=== PATIENT | male | born 1970 | race Caucasian/White ===

== ENCOUNTER → 2024-03-10 | Outpatient (CLI) | payer MEDICARE, MEDICAID, SELFPAY ==
[2024-03-10 08:43] LABS: Basophils # (Auto) 0.1 Thou/mm3 (0.0-0.2); Basophils % (Auto) 1 % (0-2.5); Eosinophils # (Auto) 0.1 Thou/mm3 (0.0-0.5); Eosinophils % (Auto) 2 % (0-10); Hematocrit 43.2 % (41.0-53.0); Immature Granulocytes % (Auto) 0 % (0-0); Immature Granulocytes Auto 0.01 Thou/mm3 (0.00-0.00); Lymphocytes # (Auto) 1.4 Thou/mm3 (1.0-4.8); Lymphocytes % (Auto) 23 % (10-50); Mean Corpuscular HGB Conc 32.4 g/dl (31.0-37.0); Mean Corpuscular Hemoglobin 26.4 pg (25.0-35.0); Mean Corpuscular Volume 82 fL (80-100); Monocytes # (Auto) 0.6 Thou/mm3 (0.0-0.8); Monocytes % (Auto) 10 % (0-12); Neutrophils % (Auto) 64 % (37-80); Nucleated Red Blood Cell % 0 /100 WBC (0); Platelet Count 282 Thou/mm3 (140-440); RDW Standard Deviation 41.5 fL (35.1-43.9); White Blood Count 6.2 Thou/mm3 (3.8-10.6)
[2024-03-10 09:09] LABS: Vitamin D 25 Hydroxy Total 25.4 ng/mL (7.3-40.2)
[2024-03-10 09:21] LABS: Alanine Aminotransferase 27 U/L (10-49); Albumin, Serum 4.6 gm/dL (3.5-5.0); Alkaline Phosphatase 107 U/L (46-116); Anion Gap 8 (7-16); BUN/Creatinine Ratio 15 Ratio (12-20); Bilirubin,Total 0.5 mg/dL (0.3-1.2); Blood Urea Nitrogen 15 mg/dL (9-23); Carbon Dioxide 24.9 mMol/L (20.0-31.0); Cardiac Risk Estimate 5.1 RATIO (4.0-6.7); Chloride 100 mMol/L (98-107); Cholesterol 226 mg/dL (132-200); Free T4 (Free Thyroxine) 1.09 ng/dL (0.89-1.76); Globulin 2.3 gm/dL (2.3-3.5); Glucose 273 mg/dL (74-106); HDL Cholesterol 44 mg/dL (40-60); LDL Cholesterol,Calculated 145 mg/dL (0-130); Osmolality,Calculated 277 (275-295); Potassium 4.1 mMol/L (3.4-5.1); Sodium 133 mMol/L (136-145); Thyroid Stimulating Hormone 2.61 uIU/mL (0.55-4.78); Total Protein 6.9 gm/dL (5.7-8.2); Triglycerides 184 mg/dL (30-150); eGFR > 60 See Note
[2024-03-10 09:28] LABS: Iron 48 mcg/dL (65-175)
[2024-03-10 09:32] LABS: Aspartate Amino Transferase 16 U/L (0-34)
== END | disposition home or self-care (01) ==
PROVIDERS: PCP Internal Medicine; Referring Provider Internal Medicine; Visit Provider Internal Medicine
DX: I11.0 Hypertensive heart disease with heart failure (principal); E11.9 Type 2 diabetes mellitus without complications; N40.1 Benign prostatic hyperplasia with lower urinary tract symptoms; E55.9 Vitamin D deficiency, unspecified; E78.2 Mixed hyperlipidemia; E03.9 Hypothyroidism, unspecified
CPT/HCPCS: 36415; 80053; 80061; 82306; 83540; 84153; 84439; 84443; 85025

== ENCOUNTER 2024-05-11 09:03 | Emergency (ER) | payer OTHER, MEDICAID, SELFPAY ==
[2024-05-11 09:04] VITALS: PULSE 66; RESP 20; O2SAT 97
--- NOTE | 2024-05-11 09:06 | EKG_ITS ---
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
[2024-05-11 09:19] VITALS: BP 129/83; PULSE 67; RESP 16; TEMP 37.2; O2SAT 96; BMI 26.1
--- NOTE | 2024-05-11 09:29 | XR_ITS ---
Examination: CT brain head without contrast. 2-D sagittal coronal reconstructions Date and time of exam:May 11, 2024 0938 hrs. Indications: Severe headaches today CTDI: vol (mGy):51.8 DLP: (mGycm):1064 Technique: Multiple CT axial sections of the brain have been obtained, 5 mm slice thickness. Contrast has not been administered. 2-D sagittal, coronal reconstructions have been obtained Low dose protocols were performed. One or more of the following dose reduction techniques were used; automated exposure control, adjustment of the mA and/or KV according to patient size, use of iterative reconstruction technique. Findings: No significant ventricular enlargement. Intra-axial or extra-axial hemorrhage density is not seen. No mass effect or midline shift Basal cisterns are not remarkable. Fourth ventricle is midline. Cranial vault intact. 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
--- NOTE | 2024-05-11 09:29 | XR_ITS ---
Examination: PA lateral chest 2 views Technique: Upright PA lateral chest 2 views Exam date and time: May 11, 2024 at 10:00 AM Comparison December 19, 2023 Indications: Chest pain shortness of breath today Findings: Normal heart size Lungs are clear. Old left-sided rib fractures Impression: No active disease
[2024-05-11 09:58] LABS: Collection Type, Urine Clean Catch; Squamous Epithelial Cell,Urine 0 /hpf (0-5); WBC,Urine 0 /hpf (0-5)
[2024-05-11 10:03] LABS: Basophils # (Auto) 0.1 Thou/mm3 (0.0-0.2); Basophils % (Auto) 1 % (0-2.5); Eosinophils # (Auto) 0.1 Thou/mm3 (0.0-0.5); Eosinophils % (Auto) 2 % (0-10); Hemoglobin 13.8 g/dL (13.5-16.0); Immature Granulocytes % (Auto) 0 % (0-0); Immature Granulocytes Auto 0.02 Thou/mm3 (0.00-0.00); Lymphocytes # (Auto) 1.3 Thou/mm3 (1.0-4.8); Lymphocytes % (Auto) 19 % (10-50); Mean Corpuscular HGB Conc 32.9 g/dl (31.0-37.0); Mean Corpuscular Hemoglobin 27.7 pg (25.0-35.0); Mean Corpuscular Volume 84 fL (80-100); Monocytes # (Auto) 0.6 Thou/mm3 (0.0-0.8); Monocytes % (Auto) 10 % (0-12); Neutrophils # (Auto) 4.5 Thou/mm3 (1.8-7.7); Neutrophils % (Auto) 68 % (37-80); Nucleated Red Blood Cell % 0 /100 WBC (0); Platelet Count 247 Thou/mm3 (140-440); RDW Standard Deviation 45.1 fL (35.1-43.9); Red Blood Count 4.99 Miln/mm3 (4.50-5.90); White Blood Count 6.6 Thou/mm3 (3.8-10.6)
[2024-05-11 10:15] LABS: Bilirubin,Urine Negative (Negative); Blood,Urine Negative (Negative); Clarity,Urine Clear (Clear/Hazy); Color,Urine Colorless (Lt Yel-Yel); Glucose, Urine Negative (Negative); Ketones,Urine Negative (Negative); Leukocyte Esterase,Urine Negative (Negative); Nitrite,Urine Negative (Negative); Protein,Urine Negative (Neg - Trace); RBC,Urine < 1 /hpf (0-3); Specific Gravity,Urine 1.006 (1.001-1.035); Urobilinogen,Urine Negative mg/dL (0.0-1.0)
[2024-05-11 10:27] LABS: Partial Thromboplastin Time 26.5 Seconds (22.0-36.0); Prothrombin Time 11.4 Seconds (9.0-12.2)
[2024-05-11 10:28] LABS: Amphetamine/Methamp Scrn,U Negative (Negative); Barbiturate Screen,Urine Negative (Negative); Benzodiazepines Screen,Urine Negative (Negative); Benzoylecgonine Screen, Ur Negative (Negative); Fentanyl Screen,Urine Negative (Negative); Opiate Screen,Urine Negative (Negative); THC Screen,Urine Negative (Negative)
[2024-05-11 10:30] LABS: Troponin I < 0.002 ng/mL (0.0-0.045)
[2024-05-11 10:32] LABS: Alanine Aminotransferase 18 U/L (10-49); Albumin, Serum 4.5 gm/dL (3.5-5.0); Albumin/Globulin Ratio 1.7 (1.2-2.2); Alkaline Phosphatase 86 U/L (46-116); Anion Gap 10 (7-16); Aspartate Amino Transferase 21 U/L (0-34); B-Type Natriuretic Peptide < 20 pg/mL (0-100); BUN/Creatinine Ratio 16 Ratio (12-20); Bilirubin,Total 0.9 mg/dL (0.3-1.2); Blood Urea Nitrogen 14 mg/dL (9-23); Calcium 9.1 mg/dL (8.3-10.6); Calcium (Corrected) 9.1 mg/dL (8.5-10.1); Chloride 99 mMol/L (98-107); Creatinine (Component) 0.9 mg/dL (0.6-1.3); Estimated Creatinine Clearance 107.3 mL/min (>60); Globulin 2.6 gm/dL (2.3-3.5); Glucose 129 mg/dL (74-106); Magnesium 1.7 mg/dL (1.6-2.6); Osmolality,Calculated 272 (275-295); Potassium 3.7 mMol/L (3.4-5.1); Sodium 135 mMol/L (136-145); Total Protein 7.1 gm/dL (5.7-8.2); eGFR > 60 See Note
--- NOTE | 2024-05-11 10:57 | PD.EDRME ---
Rapid Medical Screening Exam RME Arrival date/time: 05/11/24 09:03 54-year-old male presents emergency department complains of headache, body aches and chest pain Chief Complaint: Chest Pain Vital signs: Vital Signs Temperature 98.9 F 05/11/24 09:19 Pulse Rate 67 05/11/24 09:19 Respiratory Rate 16 05/11/24 09:19 Blood Pressure 129/83 05/11/24 09:19 Pulse Oximetry (%) 96 05/11/24 09:19 Oxygen Delivery Method Room Air 05/11/24 09:19
[2024-05-11 14:18] VITALS: BP 110/71; PULSE 65; RESP 12; TEMP 36.4; O2SAT 97
--- NOTE | 2024-05-11 14:33 | PD.EDADULT ---
ED General RME/HPI General Chief complaint: Chest Pain Stated complaint: CHEST PAIN Time Seen by Provider: 05/11/24 12:56 Arrival date/time: 05/11/24 09:03 CC: Chest pain body aches HPI ongoing since 6 AM this morning, now the chest pain is gone the patient just has a mild headache. Patient is diabetic was concerned it might be his heart . Patient denies shortness of breath difficulty breathing nausea vomiting. No other complaints. RME / HPI RME / HPI narrative: 05/11/24 09:03 54-year-old male presents emergency department complains of headache, body aches and chest pain Related Data Home Medications ?Medication ?Instructions ?Recorded ?Confirmed amlodipine 10 mg tablet 10 mg PO DAILY 05/19/21 05/19/21 atenolol 100 mg tablet 100 mg PO DAILY 05/19/21 05/19/21 atorvastatin 20 mg tablet 20 mg PO DAILY 05/19/21 05/19/21 benazepril 40 mg tablet 40 mg PO DAILY High Blood Pressure 05/19/21 05/19/21 Allergies Allergy/AdvReac Type Severity Reaction Status Date / Time No Known Allergies Allergy Verified 12/17/23 13:08 Review of Systems Review of Systems Narrative Review of Systems: GEN: No fever, no chills, no weight loss EYES: No discharge, no visual changes, no pain HEENT: No ear pain, no congestion, no sore throat PULM: No shortness of breath, no cough, no congestion CV: + chest pain, no dyspnea on exertion, no palpitations GI: No nausea, no vomiting, no diarrhea, no pain, no constipation : No frequency, no urgency, no dysuria MUSC/SKEL: No joint pain, no back pain SKIN: No rash PSYCH: No hallucinations, no depression HEME/LYMPH: No easy bleeding or bruising tendencies NEURO: No weakness, no headache Past Medical History Past Medical History NEUROLOGIC: Positive Seizures CARDIAC: Positive Hypercholesterolemia and Hypertension; Negative Cardiac Disorders or Congestive Heart Failure RESPIRATORY: Negative Chronic Obstructive Pulmonary Disease (COPD) GENITOURINARY: Negative Renal Disease MUSCULOSKELETAL: Positive Gout ENDOCRINE: Negative Diabetes Mellitus Type 1 or Diabetes Mellitus Type 2 OTHER HISTORY: Positive Falls Family History FAMILY HISTORY: Negative Family Cardiac Disorders Social History SMOKING STATUS: Never smoker ED Exam Narrative Physical exam: [General: Not in any acute distress Head normocephalic HEENT: Within acceptable limits Neck is supple nontender Chest equal chest rise nontender to palpation Respiratory: Clear to auscultation no wheezes crackles or rubs CV: Rate rhythm is regular no murmurs rubs or clicks Abdomen is soft nontender no masses positive bowel sounds all 4 quadrants Back: No CVA tenderness no spinous process tenderness from cervical spine thoracic and lumbar spine Skin: Intact no petechiae rash induration ulceration or crepitus Extremities: Moving all extremity against resistance cap refill less than 2 seconds neurosensory intact Neuro: Awake alert oriented x3 Glascow coma 15 no focal deficits] Course Quality Measures none Orders Category Date Time Status EKG (ED ONLY) *Do not use* NOW Care 05/11/24 09:[address] head/brain wo con Stat Exams 05/11/24 09:29 Completed EKG (ED Only) Stat Exams 05/11/24 09:06 Draft XR chest 2V Stat Exams 05/11/24 09:29 Completed B-Type Natriuretic Peptide Stat Lab 05/11/24 09:46 Completed CBC Stat Lab 05/11/24 09:46 Completed Comprehensive Metabolic Panel Stat Lab 05/11/24 09:46 Completed Drug Screen,Urine Stat Lab 05/11/24 09:54 Completed Magnesium Stat Lab 05/11/24 09:46 Completed Partial Thromboplastin Time Stat Lab 05/11/24 09:46 Completed Prothrombin Time with INR Stat Lab 05/11/24 09:46 Completed Troponin I Stat Lab 05/11/24 09:46 Completed Urinalysis Stat Lab 05/11/24 09:54 Completed Vital Signs Vital signs: Vital Signs Temperature 98.9 F 05/11/24 09:19 Pulse Rate 67 05/11/24 09:19 Respiratory Rate 16 05/11/24 09:19 Blood Pressure 129/83 05/11/24 09:19 Pulse Oximetry (%) 96 05/11/24 09:19 Oxygen Delivery Method Room Air 05/11/24 09:19 [facility] Patient data External records reviewed:: [facility] previous records and EMS form Clinical information provided by:: patient and EMS Social determinants that could affect healthcare access:: none Patient has the following chronic illnesses:: Diabetic hyperlipidemia hypertension How is presenting disease/condition affected by chronic disease/condition?: uneffected by Evaluation data The following diagnostics were reviewed and interpreted by me:: lab results, radiology exam(s) and EKG tracing(s) Lab and/or radiology exams considered but not ordered:: EKG performed at 0 917 shows a ventricular rate of 68 ND interval 172 QRS of 110 QTc of 428 this is sinus rhythm incomplete right bundle branch block CBC shows no acute leukocytosis anemia thrombocytopenia CMP shows elevated blood glucose level at 129 no other electrolyte imbalances renal impairment transaminitis or T. bili elevation Coags within acceptable limits Troponin is negative BNP is negative Urine is negative UDS is negative Chest x-ray as interpreted by me read by radiology as negative for any acute finding CT head shows no acute finding as interpreted by me read by radiology. Interpretation Summary: No chest pain a low index of suspicion for any acute finding patient has a heart score of 1. Medications Medications considered but not ordered:: None Medication administrations:: None Consultations Consultation(s) initiated? (list below): No Diagnosis Differential Diagnosis ED Complaint MDM: ACS [place] pneumonia Most likely diagnosis given after review of the tests above:: Chest pain Admission Indicated Admission indicated?: not indicated Explain why admission is indicated or not indicated:: Stable for discharge Admission Request Was there a request for admission?: No Disposition Plan Disposition Plan: Discharge Discharge Attestation Discharge Attestation: The patient and all family members were given an opportunity to ask questions and understood the discharge instructions. Discharge instructions specifically effects, indications for sooner follow up or return to the emergency department, and the expected course of current diagnosis. Patient condition: Stable Medical Decision Making Differential Diagnosis Differential Diagnosis: ACS [place] pneumonia Lab Data 05/11/24 09:46 05/11/24 09:46 Labs: Lab Results 05/11/24 05/11/24 Range/Units 09:46 09:54 WBC 6.6 (3.8-10.6) Thou/mm3 RBC 4.99 (4.50-5.90) Miln/mm3 Hgb 13.8 (13.5-16.0) g/dL Hct 42.0 (41.0-53.0) % MCV 84 (80-100) fL MCH 27.7 (25.0-35.0) pg MCHC 32.9 (31.0-37.0) g/dl RDW Std Deviation 45.1 H (35.1-43.9) fL Plt Count 247 (140-440) Thou/mm3 Neut % (Auto) 68 (37-80) % Lymph % (Auto) 19 (10-50) % [place] % (Auto) 10 (0-12) % Eos % (Auto) 2 (0-10) % Baso % (Auto) 1 (0-2.5) % Neut # (Auto) 4.5 (1.8-7.7) Thou/mm3 Lymph # (Auto) 1.3 (1.0-4.8) Thou/mm3 [place] # (Auto) 0.6 (0.0-0.8) Thou/mm3 Eos # (Auto) 0.1 (0.0-0.5) Thou/mm3 Baso # (Auto) 0.1 (0.0-0.2) Thou/mm3 Immature Gran # (Auto) 0.02 H (0.00-0.00) Thou/mm3 Absolute Nucleated RBC 0.00 (0.00-0.00) Thou/mm3 Immature Gran % 0 (0-0) % Nucleated RBC % 0 (0) /100 WBC PT 11.4 (9.0-12.2) Seconds INR 1.0 (0.9-1.3) APTT 26.5 (22.0-36.0) Seconds Sodium 135 L (136-145) mMol/L Potassium 3.7 (3.4-5.1) mMol/L Chloride 99 (98-107) mMol/L Carbon Dioxide 26.0 (20.0-31.0) mMol/L Anion Gap 10 (7-16) BUN 14 (9-23) mg/dL Creatinine 0.9 (0.6-1.3) mg/dL Estim Creat Clear Calc 107.3 (>60) mL/min eGFR > 60 (60 - ) See Note BUN/Creatinine Ratio 16 (12-20) Ratio Glucose 129 H (74-106) mg/dL Calculated Osmolality 272 L (275-295) Calcium 9.1 (8.3-10.6) mg/dL Corrected Calcium 9.1 (8.5-10.1) mg/dL Magnesium 1.7 (1.6-2.6) mg/dL Total Bilirubin 0.9 (0.3-1.2) mg/dL AST 21 (0-34) U/L ALT 18 (10-49) U/L Alkaline Phosphatase 86 (46-116) U/L Troponin I < 0.002 (0.0-0.045) ng/mL B-Natriuretic Peptide < 20 (0-100) pg/mL Total Protein 7.1 (5.7-8.2) gm/dL Albumin 4.5 (3.5-5.0) gm/dL Globulin 2.6 (2.3-3.5) gm/dL Albumin/Globulin Ratio 1.7 (1.2-2.2) Ur Collection Type Clean Catch Urine Color Colorless A (Lt Yel-Yel) Urine Clarity Clear (Clear/Hazy) Urine pH 7.0 (5.0-7.0) Ur Specific Glide 1.006 (1.001-1.035) Urine Protein Negative (Neg - Trace) Urine Glucose (UA) Negative (Negative) Urine Ketones Negative (Negative) Urine Blood Negative (Negative) Urine Nitrite Negative (Negative) Urine Bilirubin Negative (Negative) Urine Urobilinogen (Auto) Negative (0.0-1.0) mg/dL Ur Leukocyte Esterase Negative (Negative) Urine RBC < 1 (0-3) /hpf Urine WBC 0 (0-5) /hpf Ur Squamous Epith Cells 0 (0-5) /hpf Urine Bacteria None (None) Urine Opiates Screen Negative (Negative) Urine Fentanyl Screen Negative (Negative) Ur Barbiturates Screen Negative (Negative) U Amphetamin/Meth Scrn Negative (Negative) U Benzodiazepines Scrn Negative (Negative) U Cocaine Metab Screen Negative (Negative) U Marijuana (THC) Screen Negative (Negative) Discharge Plan Plan Patient Disposition: HOME (Self Care) Patient condition on transfer: Stable Prescriptions/Referrals Prescriptions/Med Rec: No Action benazepril 40 mg Tablet 40 mg PO DAILY atorvastatin 20 mg Tablet 20 mg PO DAILY atenolol 100 mg Tablet 100 mg PO DAILY amlodipine 10 mg Tablet 10 mg PO DAILY Referrals: No Primary/Family,Physician [Primary Care Provider] - In 1 week Problem List Clinical Impression: Atypical chest pain Patient/Caregiver Discharge Instructions Other Activity Instructions:: Take all your medicines as you usually do follow-up with your primary care provider if there is worsening of symptoms return to the emergency room medially for further evaluation. Education Materials: ED Chest Pain, Uncertain Cause Print Language: Syriac Stand Alone Forms: Donna Award Info., Work/School Release, Patient Portal Info Letter PA/BRICK CARRIER Supervising Physician PA/BRICK CARRIER Supervising Physician: Braden Gautam ENP
--- NOTE | 2024-05-11 15:47 | PC.NURSE ---
PT NOT FOUND IN OR OUTSIDE OF LOBBY. PT LEFT WITHOUT D/C PAPERWORK.
== END 2024-05-11 15:48 | disposition home or self-care (01) ==
PROVIDERS: Nurse Practitioner Primary Care; Emergency Provider Emergency Medicine
DX: R07.89 Other chest pain (principal); R51.9 Headache, unspecified; E11.9 Type 2 diabetes mellitus without complications
CPT/HCPCS: 36415; 70450; 71046; 80053; 80307; 81001; 83735; 83880; 84484; 85025; 85610; 85730; 93005; 99284

== ENCOUNTER 2024-07-07 10:02 | Emergency (ER) | payer MEDICAID, SELFPAY ==
[2024-07-07 10:14] VITALS: PULSE 74; RESP 18; O2SAT 99; BMI 33.8
--- NOTE | 2024-07-07 10:14 | XR_ITS ---
Examination: AP chest single view TECHNIQUE: AP portable upright chest single view Exam date and time: July 07, 2024 10:23 AM Comparison May 11, 2024 INDICATIONS: Sudden onset chest pain headache today FINDINGS: Normal heart size No pneumonia or pulmonary edema Old left-sided fractures IMPRESSION: No active disease
--- NOTE | 2024-07-07 10:14 | EKG_ITS ---
[facility] Test Date: 2024-07-07 Pat Name: LUISA MURGUIA Department: Room: - Gender: Male Change Management: : 1970 Requested By: Ajay Cummins Order Number: [id number] Reading MD: Ajay Cummins Measurements Intervals [place] Rate: 62 P: 58 MO: 163 QRS: 28 QRSD: 98 T: 3 QT: 412 QTc: 420 Interpretive Statements SINUS RHYTHM LOW QRS VOLTAGE IN PRECORDIAL LEADS [QRS DEFLECTION < 1.0 mV IN CHEST LEADS] NONSPECIFIC T-WAVE ABNORMALITY Compared to ECG 05/11/2024 09:17:22 Low QRS voltage now present T-wave abnormality now present Incomplete right bundle-branch block no longer present /store/S0/[id number]
--- NOTE | 2024-07-07 10:16 | PD.EDCHEST ---
ED Chest Pain RME/HPI General Chief Complaint: Chest Pain Stated Complaint: CHEST PAIN Time Seen by Provider: 07/07/24 10:14 Arrival date/time: 07/07/24 10:02 RME / HPI RME / HPI narrative: 54 year old male with history of hypertension, hyperlipidemia, questionable seizures, presents to the ED BIBA for complaint of substernal chest pain beginning at 08:00 AM today. Described as aching that is located deep inside, rating 8/10. No radiation or migration. Per medics, patient en route was given 162mg Aspirin, 0.8 SL Nitro, and 1 Nitro paste on chest. While in the ED patient reports his pain has improved. No other associated symptoms or complaints. Denies fevers, chills, cough, shortness of breath, abdominal pain, n/v/d. Related Data Home Medications ?Medication ?Instructions ?Recorded ?Confirmed amlodipine 10 mg tablet 10 mg PO DAILY 05/19/21 05/19/21 atenolol 100 mg tablet 100 mg PO DAILY 05/19/21 05/19/21 atorvastatin 20 mg tablet 20 mg PO DAILY 05/19/21 05/19/21 benazepril 40 mg tablet 40 mg PO DAILY High Blood Pressure 05/19/21 05/19/21 Allergies Allergy/AdvReac Type Severity Reaction Status Date / Time No Known Allergies Allergy Verified 07/07/24 10:17 Review of Systems Review of Systems Narrative Review of Systems: Constitutional: DENIES; Fevers Eyes: DENIES; Loss of vision Head/Ear/Nose: DENIES; Loss of hearing Throat: DENIES; Dysphagia Cardiovascular: SEE HPI DENIES; dyspnea or syncope Respiratory: DENIES; Shortness of breath Gastrointestinal: DENIES; Rectal bleeding or melena. Genitourinary: DENIES; Dysuria (painful or difficult urination) Musculoskeletal: DENIES; Arthralgia (pain in a joint),; Skin: DENIES; Rash Neurological: DENIES; Loss of function or movement Psychiatric: DENIES; recent major life stressor, emotional problem, illicit drug use or abuse Endocrinology: DENIES; Weight change Hematologic/Lymphatic: DENIES; Abnormal bruising Allergic/Immunologic: DENIES; Urticaria (hives) Past Medical History Past Medical History NEUROLOGIC: Positive Seizures CARDIAC: Positive Hypercholesterolemia and Hypertension; Negative Cardiac Disorders or Congestive Heart Failure RESPIRATORY: Negative Chronic Obstructive Pulmonary Disease (COPD) GENITOURINARY: Negative Renal Disease MUSCULOSKELETAL: Positive Gout ENDOCRINE: Negative Diabetes Mellitus Type 1 or Diabetes Mellitus Type 2 OTHER HISTORY: Positive Falls Family History FAMILY HISTORY: Negative Family Cardiac Disorders Social History SMOKING STATUS: Never smoker ED Exam Narrative Physical exam: Physical Exam: General: The vital signs were reviewed. The patient is non-toxic, in no apparent distress and appears healthy with a patent airway, no respiratory distress and has no apparent circulatory problems. Head & Scalp: Normocephalic, atraumatic. Face: Appears normal and is without lesions, deformity. Ears: Left external pinna appears normal. Right external pinna appears normal. Eyes: The sclera is anicteric. No obvious photophobia. The Left and Right Orbit/Lid/Conjunctiva appears normal without swelling, discoloration or injection. Nose: The nose is without deformity, discharge or tenderness; Throat: Appears normal. The mucous membranes are pink and moist without exudates, redness or mass seen. The tongue appears normal. Neck: The neck is supple and no apparent mass or adenopathy. Chest: The chest wall is normal in size and symmetry and has no chest wall tenderness or crepitus. The patient displays normal ventilator effort without retractions, accessory muscle use and has adequate air movement bilaterally with no wheezes and no rales. Cardiovascular: Regular rate and rhythm; No murmurs, rubs, or gallops; Gastrointestinal: The abdomen appears normal. No obvious hernias or mass. The abdomen is soft and benign, non-distended, with no pain, no guarding and no rebound tenderness. Bowel sounds are present and normal sounding. No CVA tenderness. Genitourinary: Back/Spine: Normal inspection Extremities/Musculoskeletal/lymphatic: The bilateral upper and lower extremities are warm. There are some atrophic appearance to the lower legs but no wounds or infections are seen. There is no evidence of arterial insufficiency. There is no evidence of venous insufficiency/edema. The patient spontaneously moves bilateral upper and lower extremities with no pain and no limitation of movement. There is no apparent, injury or trauma. Skin: The skin is warm, dry and intact. No rashes. No petechia. No purpura. No abnormal bruising. The color is appropriate with no cyanosis. Mental status/Psychiatric: Mental status is appropriate for age. The patient has no apparent delusions, visual hallucinations, no apparent audible hallucinations. The patient has no apparent suicidal thoughts/ideation and no apparent homicidal thoughts/ideation. Neurological: The patient is awake, alert, interactive, cordial, cooperative and is oriented to name and situation. The patient follows commands and answers historical question with no impairment. There is no visual disturbance apparent. The pupils are equal and reactive bilaterally with normal eye movements and no diplopia The bilateral upper and lower extremities have normal strength, normal range of motion and normal functioning. The gait, station and balance appear to be baseline with no acute change Course Course Course Narrative: chest xray ordered to help determine etiology of chest pain. Quality Measures none Orders Category Date Time Status EKG (ED ONLY) *Do not use* NOW Care 07/07/24 10:14 Completed EKG (ED Only) Stat Exams 07/07/24 10:14 Draft XR chest 1V portable Stat Exams 07/07/24 10:14 Completed B-Type Natriuretic Peptide Stat Lab 07/07/24 10:59 Completed CBC Stat Lab 07/07/24 10:59 Completed Comprehensive Metabolic Panel Stat Lab 07/07/24 10:59 Completed Drug Screen,Urine Stat Lab 07/07/24 11:45 Completed Lactate (Lactic Acid) Stat Lab 07/07/24 10:59 Completed Lipase Stat Lab 07/07/24 10:59 Completed Magnesium Stat Lab 07/07/24 10:59 Completed Partial Thromboplastin Time Stat Lab 07/07/24 10:59 Completed Prothrombin Time with INR Stat Lab 07/07/24 10:59 Completed Troponin I Stat Lab 07/07/24 10:59 Completed Troponin I Stat Lab 07/07/24 13:25 Completed Urinalysis Stat Lab 07/07/24 11:45 Completed Urinalysis, C/S if Indicated Stat Lab 07/07/24 11:45 Completed Vital Signs Vital signs: Vital Signs Temperature 98.0 F 07/07/24 10:37 Pulse Rate 63 07/07/24 10:37 Respiratory Rate 16 07/07/24 10:37 Blood Pressure 106/70 07/07/24 10:37 Pulse Oximetry (%) 96 07/07/24 10:37 Oxygen Delivery Method Room Air 07/07/24 10:37 Pulse ox is 96% on room air which is adequate. Chest Pain MDM Narrative MDM Narrative:: Patient presents with a chest pain for over an hour duration called EMS and came and got nitroglycerin both sublingually and by paste and now his chest pain-free. Medical workup is initiated 1015 hrs. Medical workup revealed a urine drug screen which was negative urinalysis which was negative. Compensated metabolic panel reveals a sodium 138 potassium 3 9 chloride 107 CO2 24.5 BUN 11 creatinine 1.0 lactic acid 1.3 transaminases were negative troponin initial 1 was negative and a second troponin done at 1325 came back also negative. Note he had no more chest pain since arrival after they originally gave his nitroglycerin. CBC with a white count of 5.5 hemoglobin of 13.6 medic at 41.1. At 1400 hrs. the patient is comfortable no shortness of breath no chest pain ambulates without difficulty. He is advised to follow-up with his regular doctor and return if getting worse in any way. We note patient had no recurrence of his chest pain and it is unclear why this is going on. He does have risk factors of high blood pressure and diabetes but his blood pressure was on the low side although he was able to stand and walk with any difficulty and no further symptoms and was discharged to follow-up with his doctors and return if getting worse. Patient data External records reviewed:: [facility] previous records (I reviewed ED visit on 05/11/2024 for chest pain ) and EMS form Clinical information provided by:: patient and EMS Social determinants that could affect healthcare access:: none Patient has the following chronic illnesses:: hypertension, hyperlipidemia, questionable seizures How is presenting disease/condition affected by chronic disease/condition?: exacerbated by Evaluation data The following diagnostics were reviewed and interpreted by me:: lab results and radiology exam(s) Lab and/or radiology exams considered but not ordered:: None Interpretation Summary: Ordering Physician: Ajay Cummins MD Date of Service: 07/07/24 Procedure(s): XR chest 1V portable Accession Number(s): [id number] cc: Ajay Cummins MD; Tomas Valdivia MD~ Examination: AP chest single view TECHNIQUE: AP portable upright chest single view Exam date and time: July 07, 2024 10:23 AM Comparison May 11, 2024 INDICATIONS: Sudden onset chest pain headache today FINDINGS: Normal heart size No pneumonia or pulmonary edema Old left-sided fractures IMPRESSION: No active disease Dictated By: Tomas Valdivia MD Signed By: <Electronically signed by Tomas Valdivia MD in OV> 07/07/24 1040 Medications / Prescriptions Medications or Prescriptions considered but not ordered:: None Medication administrations:: Nitroglycerin was given by EMS and along with aspirin. Consultations Consultation(s) initiated? (list below): No Diagnosis Chest Pain Differential Diagnosis: stable angina, atypical chest pain, st elevation myocardial infarction, costochondritis, chest pain and biliary colic Most likely diagnosis given after review of the tests above:: Chest pain unknown known diagnosis. Admission Indicated Admission indicated?: not indicated Admission Request Was there a request for admission?: No Disposition Plan Disposition Plan: Discharge (Patient was comfortable knows return if getting worse in any way no evidence of heart attack as 2 troponins came back negative) Discharge Attestation Discharge Attestation: The patient and all family members were given an opportunity to ask questions and understood the discharge instructions. Discharge instructions specifically effects, indications for sooner follow up or return to the emergency department, and the expected course of current diagnosis. Patient condition: Stable Discharge Plan Plan Patient Disposition: HOME (Self Care) Prescriptions/Referrals Prescriptions/Med Rec: No Action benazepril 40 mg Tablet 40 mg PO DAILY atorvastatin 20 mg Tablet 20 mg PO DAILY atenolol 100 mg Tablet 100 mg PO DAILY amlodipine 10 mg Tablet 10 mg PO DAILY Referrals: Terence Eli MD [Primary Care Provider] - In 1 week Problem List Clinical Impression: Chest pain, History of type 2 diabetes mellitus Patient/Caregiver Discharge Instructions Education Materials: ED Chest Pain, Uncertain Cause Additional Instructions: Today your medical workup for your chest pain revealed no evidence of a heart attack. The cause of your chest pain is unknown at this time. Your labs chest x-ray and EKG revealed no evidence of heart attack. Please make an appointment to follow-up with your regular doctor to further evaluate your chest pain and keep a diary of any of her symptoms. If the symptoms recur and persist and your chest pain is lasting greater than 15 minutes please return for reevaluation. Print Language: Libyan Stand Alone Forms: [employer] Info., Patient Portal Info Letter
[2024-07-07 10:37] VITALS: BP 106/70; PULSE 63; RESP 16; TEMP 36.7; O2SAT 96
[2024-07-07 11:08] LABS: Lactate (Lactic Acid) 1.3 mMol/L (0.4-2.0)
[2024-07-07 11:11] LABS: Basophils % (Auto) 1 % (0-2.5); Eosinophils # (Auto) 0.1 Thou/mm3 (0.0-0.5); Eosinophils % (Auto) 2 % (0-10); Hematocrit 41.1 % (41.0-53.0); Hemoglobin 13.6 g/dL (13.5-16.0); Immature Granulocytes % (Auto) 0 % (0-0); Immature Granulocytes Auto 0.01 Thou/mm3 (0.00-0.00); Lymphocytes # (Auto) 1.4 Thou/mm3 (1.0-4.8); Lymphocytes % (Auto) 26 % (10-50); Mean Corpuscular HGB Conc 33.1 g/dl (31.0-37.0); Mean Corpuscular Hemoglobin 28.9 pg (25.0-35.0); Mean Corpuscular Volume 87 fL (80-100); Monocytes # (Auto) 0.5 Thou/mm3 (0.0-0.8); Monocytes % (Auto) 9 % (0-12); Neutrophils # (Auto) 3.4 Thou/mm3 (1.8-7.7); Neutrophils % (Auto) 62 % (37-80); Nucleated Red Blood Cell % 0 /100 WBC (0); Platelet Count 221 Thou/mm3 (140-440); RDW Standard Deviation 45.7 fL (35.1-43.9); White Blood Count 5.5 Thou/mm3 (3.8-10.6)
[2024-07-07 11:25] LABS: B-Type Natriuretic Peptide < 20 pg/mL (0-100)
[2024-07-07 11:27] LABS: Alanine Aminotransferase 13 U/L (10-49); Albumin, Serum 4.1 gm/dL (3.5-5.0); Albumin/Globulin Ratio 1.9 (1.2-2.2); Alkaline Phosphatase 67 U/L (46-116); Anion Gap 7 (7-16); Aspartate Amino Transferase 15 U/L (0-34); BUN/Creatinine Ratio 11 Ratio (12-20); Bilirubin,Total 0.6 mg/dL (0.3-1.2); Blood Urea Nitrogen 11 mg/dL (9-23); Calcium 8.4 mg/dL (8.3-10.6); Calcium (Corrected) 8.4 mg/dL (8.5-10.1); Carbon Dioxide 24.5 mMol/L (20.0-31.0); Chloride 107 mMol/L (98-107); Estimated Creatinine Clearance 80.1 mL/min (>60); Globulin 2.2 gm/dL (2.3-3.5); Glucose 123 mg/dL (74-106); Lipase 26 U/L (12-53); Magnesium 1.8 mg/dL (1.6-2.6); Osmolality,Calculated 276 (275-295); Potassium 3.9 mMol/L (3.4-5.1); Sodium 138 mMol/L (136-145); Total Protein 6.3 gm/dL (5.7-8.2); Troponin I < 0.002 ng/mL (0.0-0.045); eGFR > 60 See Note
[2024-07-07 11:30] LABS: Partial Thromboplastin Time 25.4 Seconds (22.0-36.0); Prothrombin Time 11.2 Seconds (9.0-12.2)
[2024-07-07 11:54] LABS: Collection Type, Urine Clean Catch; Squamous Epithelial Cell,Urine 0 /hpf (0-5)
[2024-07-07 11:59] LABS: Bilirubin,Urine Negative (Negative); Blood,Urine Negative (Negative); Clarity,Urine Clear (Clear/Hazy); Color,Urine Lt-Yellow (Lt Yel-Yel); Culture Indicated,Urine Not Indicated; Glucose, Urine Negative (Negative); Ketones,Urine Negative (Negative); Leukocyte Esterase,Urine Negative (Negative); Nitrite,Urine Negative (Negative); Protein,Urine Negative (Neg - Trace); RBC,Urine < 1 /hpf (0-3); Specific Gravity,Urine 1.008 (1.001-1.035); Urobilinogen,Urine Negative mg/dL (0.0-1.0); WBC,Urine 1 /hpf (0-5)
[2024-07-07 12:07] LABS: Amphetamine/Methamp Scrn,U Negative (Negative); Barbiturate Screen,Urine Negative (Negative); Benzodiazepines Screen,Urine Negative (Negative); Benzoylecgonine Screen, Ur Negative (Negative); Fentanyl Screen,Urine Negative (Negative); Opiate Screen,Urine Negative (Negative); THC Screen,Urine Negative (Negative)
[2024-07-07 12:20] VITALS: BP 121/69; PULSE 67; RESP 18; TEMP 37.3; O2SAT 96
[2024-07-07 13:53] LABS: Troponin I < 0.002 ng/mL (0.0-0.045)
[2024-07-07 13:58] VITALS: BP 112/72; PULSE 63; RESP 16; TEMP 37.2; O2SAT 98
== END 2024-07-07 14:25 | disposition home or self-care (01) ==
PROVIDERS: Emergency Provider Emergency Medicine; PCP Internal Medicine
DX: R07.2 Precordial pain (principal); E11.9 Type 2 diabetes mellitus without complications; I10 Essential (primary) hypertension; E78.5 Hyperlipidemia, unspecified
CPT/HCPCS: 36415; 71045; 80053; 80307; 81001; 83605; 83690; 83735; 83880; 84484; 85025; 85610; 85730; 93005; 99283

== ENCOUNTER 2024-07-09 09:45 | Emergency (ER) | payer MEDICARE, MEDICAID, SELFPAY ==
[2024-07-09 09:46] VITALS: BP 148/86; PULSE 68; RESP 16; TEMP 36.4; O2SAT 96
[2024-07-09 09:47] VITALS: PULSE 74; RESP 18; O2SAT 98
[2024-07-09 09:48] VITALS: BMI 26.7
--- NOTE | 2024-07-09 09:49 | EKG_ITS ---
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
--- NOTE | 2024-07-09 09:49 | XR_ITS ---
Examination: PA chest single view TECHNIQUE: Upright PA chest single view Exam date and time: July 09, 2024 1039 hours INDICATIONS: Chest pain beginning 2 days ago. FINDINGS: Mild prominence of the bone No pneumonia or pulmonary edema. Old left-sided rib fractures IMPRESSION: No active disease
[2024-07-09] MEDS: ASPIRIN 81 MG CHEW 324 MG PO (10:09)
--- NOTE | 2024-07-09 10:14 | PD.EDCHEST ---
ED Chest Pain RME/HPI General Chief Complaint: Chest Pain Stated Complaint: CHEST WALL PAIN Time Seen by Provider: 07/09/24 09:46 Arrival date/time: 07/09/24 09:45 RME / HPI RME / HPI narrative: 54 year old male with a history of diabetes and hypertension presented to the ER BIBA with a chief complaint of chest pain. Per EMS, chest wall pain started at 0700 and patient experienced pressure most to the left lower chest. Per patient, during the start of his day he began having chest pain coming from inside . Patient stated, I don't feel good in my chest inside. Denies numbness and tingling. Denies history of smoking. Related Data Home Medications ?Medication ?Instructions ?Recorded ?Confirmed amlodipine 10 mg tablet 10 mg PO DAILY 05/19/21 05/19/21 atenolol 100 mg tablet 100 mg PO DAILY 05/19/21 05/19/21 atorvastatin 20 mg tablet 20 mg PO DAILY 05/19/21 05/19/21 benazepril 40 mg tablet 40 mg PO DAILY High Blood Pressure 05/19/21 05/19/21 Allergies Allergy/AdvReac Type Severity Reaction Status Date / Time No Known Allergies Allergy Verified 07/07/24 10:17 Review of Systems Review of Systems Systems Reviewed: All systems reviewed, normal except as documented Narrative Review of Systems: Gen: No fever, no chills, no weight loss EYES: No discharge, no visual changes, no pain HEENT: No ear pain, no congestion, no sore throat PULM: No shortness of breath, no cough, no congestion CV: +chest pain, no dyspnea on exertion, no palpitations GI: No nausea, no vomiting, no diarrhea, no pain, no constipation : No frequency, no urgency, no dysuria Musc/skel: No joint pain, no back pain Skin: No rash Psyc: No hallucinations, no depression Heme/Lymph: No easy bleeding or bruising tendencies Neuro: No weakness, no headache Past Medical History Past Medical History NEUROLOGIC: Positive Seizures CARDIAC: Positive Hypercholesterolemia and Hypertension MUSCULOSKELETAL: Positive Gout OTHER HISTORY: Positive Falls Family History FAMILY HISTORY: Negative Family Cardiac Disorders Social History SMOKING STATUS: Current every day smoker ED Exam Narrative Physical exam: GENERAL APPEARANCE: alert and oriented x 4, well-developed, well-nourished, no acute distress HEENT: Normocephalic, atraumatic; pupils equal, round, reactive to light; EOMI; mucous membranes pink, moist; oropharynx clear NECK: Supple LUNGS: CTABL; no wheezes, no rales, no rhonchi HEART: Regular rate, regular rhythm; normal S1, S2; no murmurs ABDOMEN: non distended; normal BS; soft, no tenderness, no guarding, no rebound; no masses, no organomegaly, no hernia BACK: no CVA tenderness EXTREMITIES: atraumatic; no edema NEUROLOGIC: awake; alert and oriented x4; cranial nerves II-XII grossly intact; no focal sensory or motor deficits PSYCHIATRIC: appropriate mood and affect SKIN: warm, dry, normal color; no rashes Course Course Course Narrative: Chest x-ray has been ordered due to determining etiology of chest pain Quality Measures none Orders Category Date Time Status EKG (ED ONLY) *Do not use* NOW Care 07/09/24 09:49 Completed EKG (ED Only) Stat Exams 07/09/24 09:49 Draft XR chest 1V portable Stat Exams 07/09/24 09:49 Completed B-Type Natriuretic Peptide Stat Lab 07/09/24 10:02 Completed CBC Stat Lab 07/09/24 10:02 Completed Comprehensive Metabolic Panel Stat Lab 07/09/24 10:02 Completed Lipase Stat Lab 07/09/24 10:02 Completed Magnesium Stat Lab 07/09/24 10:02 Completed Partial Thromboplastin Time Stat Lab 07/09/24 10:02 Completed Prothrombin Time with INR Stat Lab 07/09/24 10:02 Completed Troponin I Stat Lab 07/09/24 10:02 Completed Acetaminophen Tab [Tylenol ES Tab] Med 07/09/24 12:45 Discontinued 1,000 mg PO X1 ONE Aspirin Chew Med 07/09/24 09:49 Discontinued 324 mg PO X1 ONE Vital Signs Vital signs: Vital Signs Temperature 97.6 F 07/09/24 09:46 Pulse Rate 68 07/09/24 09:46 Respiratory Rate 16 07/09/24 09:46 Blood Pressure 148/86 H 07/09/24 09:46 Pulse Oximetry (%) 96 07/09/24 09:46 Oxygen Delivery Method Room Air 07/09/24 09:46 Chest Pain MDM Narrative MDM Narrative:: Cindy Ambriz am scribing for and in the presence of Dr. Shah. Patient data External records reviewed:: [facility] previous records and EMS form Clinical information provided by:: patient and EMS Social determinants that could affect healthcare access:: none Patient has the following chronic illnesses:: diabetes, hypertension How is presenting disease/condition affected by chronic disease/condition?: exacerbated by Evaluation data The following diagnostics were reviewed and interpreted by me:: lab results, radiology exam(s) and EKG tracing(s) (EKG#1: EKG at 1015 hours.Interpreted by me: sinus rhythm, rate 69, Q-Wave in V3, no ischemic changes ) Lab and/or radiology exams considered but not ordered:: none Interpretation Summary: Ordering Physician: Zulema Shah MD Date of Service: 07/09/24 Procedure(s): XR chest 1V portable Accession Number(s): [id number] cc: Terence Eli MD; Tomas Valdivia MD; Zuelma Shah MD~ Examination: PA chest single view TECHNIQUE: Upright PA chest single view Exam date and time: July 09, 2024 1039 hours INDICATIONS: Chest pain beginning 2 days ago. FINDINGS: Mild prominence of the bone No pneumonia or pulmonary edema. Old left-sided rib fractures IMPRESSION: No active disease Dictated By: Tomas Valdivia MD Signed By: <Electronically signed by Tomas Valdivia MD in OV> 07/09/24 1112 Medications / Prescriptions Medications or Prescriptions considered but not ordered:: none Medication administrations:: Medication Administration History Discontinued Medications Acetaminophen (Acetaminophen 500 Mg Tablet) 1,000 mg PO X1 ONE Stop: 07/09/24 12:46 Aspirin (Aspirin 81 Mg Chew) 324 mg PO X1 ONE Stop: 07/09/24 09:50 Last Admin: 07/09/24 10:09 Dose: 324 mg Documented By: LF see above. Consultations Consultation(s) initiated? (list below): No Diagnosis Chest Pain Differential Diagnosis: atypical chest pain, st elevation myocardial infarction and chest pain Most likely diagnosis given after review of the tests above:: atypical chest pain, headache Admission Indicated Admission indicated?: not indicated Admission Request Was there a request for admission?: No Disposition Plan Disposition Plan: Discharge Discharge Attestation Discharge Attestation: The patient and all family members were given an opportunity to ask questions and understood the discharge instructions. Discharge instructions specifically effects, indications for sooner follow up or return to the emergency department, and the expected course of current diagnosis. Patient condition: Stable Discharge Plan Plan Patient Disposition: Elopement Prescriptions/Referrals Prescriptions/Med Rec: No Action benazepril 40 mg Tablet 40 mg PO DAILY atorvastatin 20 mg Tablet 20 mg PO DAILY atenolol 100 mg Tablet 100 mg PO DAILY amlodipine 10 mg Tablet 10 mg PO DAILY Referrals: Terence Eli MD [Primary Care Provider] - In 1 week Problem List Clinical Impression: Atypical chest pain, Headache Patient/Caregiver Discharge Instructions Education Materials: Self-Care for Headaches, ED Chest Pain, Uncertain Cause Print Language: Fijian Stand Alone Forms: [employer] Info., Patient Portal Info Letter
[2024-07-09 10:47] LABS: Partial Thromboplastin Time 25.3 Seconds (22.0-36.0); Prothrombin Time 10.9 Seconds (9.0-12.2)
[2024-07-09 10:49] LABS: Basophils # (Auto) 0.1 Thou/mm3 (0.0-0.2); Basophils % (Auto) 1 % (0-2.5); Eosinophils # (Auto) 0.1 Thou/mm3 (0.0-0.5); Eosinophils % (Auto) 1 % (0-10); Hematocrit 44.2 % (41.0-53.0); Hemoglobin 14.5 g/dL (13.5-16.0); Immature Granulocytes % (Auto) 0 % (0-0); Immature Granulocytes Auto 0.02 Thou/mm3 (0.00-0.00); Lymphocytes # (Auto) 1.3 Thou/mm3 (1.0-4.8); Lymphocytes % (Auto) 22 % (10-50); Mean Corpuscular HGB Conc 32.8 g/dl (31.0-37.0); Mean Corpuscular Hemoglobin 28.7 pg (25.0-35.0); Mean Corpuscular Volume 88 fL (80-100); Monocytes # (Auto) 0.5 Thou/mm3 (0.0-0.8); Monocytes % (Auto) 8 % (0-12); Neutrophils # (Auto) 3.8 Thou/mm3 (1.8-7.7); Neutrophils % (Auto) 67 % (37-80); Nucleated Red Blood Cell % 0 /100 WBC (0); Platelet Count 220 Thou/mm3 (140-440); RDW Standard Deviation 45.5 fL (35.1-43.9); Red Blood Count 5.05 Miln/mm3 (4.50-5.90); White Blood Count 5.7 Thou/mm3 (3.8-10.6)
[2024-07-09 10:51] LABS: Alanine Aminotransferase 16 U/L (10-49); Albumin, Serum 4.3 gm/dL (3.5-5.0); Albumin/Globulin Ratio 1.6 (1.2-2.2); Alkaline Phosphatase 68 U/L (46-116); Anion Gap 9 (7-16); Aspartate Amino Transferase 23 U/L (0-34); BUN/Creatinine Ratio 9 Ratio (12-20); Bilirubin,Total 0.6 mg/dL (0.3-1.2); Blood Urea Nitrogen 9 mg/dL (9-23); Calcium 8.5 mg/dL (8.3-10.6); Calcium (Corrected) 8.5 mg/dL (8.5-10.1); Chloride 103 mMol/L (98-107); Estimated Creatinine Clearance 93.8 mL/min (>60); Globulin 2.7 gm/dL (2.3-3.5); Glucose 123 mg/dL (74-106); Lipase 27 U/L (12-53); Magnesium 1.8 mg/dL (1.6-2.6); Osmolality,Calculated 273 (275-295); Potassium 4.1 mMol/L (3.4-5.1); Sodium 137 mMol/L (136-145); Troponin I < 0.002 ng/mL (0.0-0.045); eGFR > 60 See Note
[2024-07-09 11:15] LABS: B-Type Natriuretic Peptide < 20 pg/mL (0-100)
[2024-07-09 12:22] VITALS: BP 131/86; PULSE 69; RESP 18; TEMP 36.4; O2SAT 97
--- NOTE | 2024-07-09 13:12 | PC.NURSE ---
no answer x1 at 1310. checked outside and lobby
--- NOTE | 2024-07-09 13:17 | PC.NURSE ---
PT CAME UP TO THIS RN WHILE WITH A PT AND SAID HE IS NOT WAITING ANYMOREAND
--- NOTE | 2024-07-09 13:18 | PC.NURSE ---
PT CAME UP TO THIS RN WHILE W/A PT AND TOLD THIS RN THAT HE IS NOT WAITING ANY LONGER AND WALKED OUT. PT ELOPED
== END 2024-07-09 13:19 | disposition left against medical advice (07) ==
PROVIDERS: Emergency Provider Emergency Medicine; PCP Internal Medicine
DX: R07.89 Other chest pain (principal); R51.9 Headache, unspecified; I45.89 Other specified conduction disorders; I10 Essential (primary) hypertension; F17.210 Nicotine dependence, cigarettes, uncomplicated; Z53.29 Procedure and treatment not carried out because of patient's decision for other reasons
CPT/HCPCS: 36415; 71045; 80053; 83690; 83735; 83880; 84484; 85025; 85610; 85730; 93005; 99281; A9270

== ENCOUNTER 2024-07-09 18:30 | Emergency (ER) | payer MEDICARE, MEDICAID, SELFPAY ==
--- NOTE | 2024-07-09 18:37 | PD.EDRME ---
Rapid Medical Screening Exam RME Arrival date/time: 07/09/24 18:30 Time Seen by Provider: 07/09/24 18:56 Vital signs: Pending Vital signs reviewed by provider: No RME Narrative: 54 yo with HX HTN. presenting by EMS EMS reports given ASA, NTG SL, x 1 and paste. Pain 03/25 I have greeted and performed a focused initial assessment of this patient. A comprehensive ED assessment and evaluation of the patient, analysis of all test results, and completion of the medical decision making process will be conducted by additional ED providers.
--- NOTE | 2024-07-09 18:42 | XR_ITS ---
Examination: PA chest single view TECHNIQUE: Upright PA chest single view Examination type: July 09, 2024 1950 hours INDICATIONS: Acute chest pain today FINDINGS: Normal heart size. Lungs are clear. Old left-sided rib fractures IMPRESSION: No active disease
--- NOTE | 2024-07-09 18:42 | EKG_ITS ---
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1970 Requested By: Collette Davenport Order Number: [id number] Reading MD: Collette Davenport Measurements Intervals [place] Rate: 74 P: 47 NV: 162 QRS: 19 QRSD: 93 T: 5 QT: 382 QTc: 424 Interpretive Statements SINUS RHYTHM LOW QRS VOLTAGE IN PRECORDIAL LEADS [QRS DEFLECTION < 1.0 mV IN CHEST LEADS] INCOMPLETE RIGHT BUNDLE BRANCH BLOCK [90+ ms QRS DURATION, TERMINAL R IN V1/V2, 40+ ms S IN I/aVL/V4/V5/V6] Compared to ECG 07/09/2024 10:15:09 Low QRS voltage now present Incomplete right bundle-branch block now present Intraventricular conduction delay no longer present /store/S0/[id number]
--- NOTE | 2024-07-09 18:57 | PD.EDCHEST ---
ED Chest Pain RME/HPI General Chief Complaint: Chest Pain Stated Complaint: CHEST PAIN Time Seen by Provider: 07/09/24 18:56 Source: patient, EMS and RN notes reviewed Arrival date/time: 07/09/24 18:30 Mode of arrival: EMS Limitations: no limitations RME / HPI RME / HPI narrative: RME: 54 yo with HX HTN. presenting by EMS EMS reports given ASA, NTG SL, x 1 and paste. Pain 03/25 I have greeted and performed a focused initial assessment of this patient. A comprehensive ED assessment and evaluation of the patient, analysis of all test results, and completion of the medical decision making process will be conducted by additional ED providers. DR. BETTS?S MAIN ED EVALUATION: 54-year-old male with history of hypertension presenting to the emergency department via private auto/EMS who is presenting for chief/stated complaint of not sharp and nonradiating chest pain, that started while he was sitting prior to watching the game. No associated symptoms include dizziness, nausea vomiting diarrhea, back pain, or shortness of breath.. Patient denies recent travel, history of pulmonary embolism or any other associated symptoms or medical complaints. - PMH: HTN, high cholesterol, - PSH: Denies - Social history: Smoker - Current medications: Reviewed PCP is MD Felicia Related Data Home Medications ?Medication ?Instructions ?Recorded ?Confirmed amlodipine 10 mg tablet 10 mg PO DAILY 05/19/21 05/19/21 atenolol 100 mg tablet 100 mg PO DAILY 05/19/21 05/19/21 atorvastatin 20 mg tablet 20 mg PO DAILY 05/19/21 05/19/21 benazepril 40 mg tablet 40 mg PO DAILY High Blood Pressure 05/19/21 05/19/21 Allergies Allergy/AdvReac Type Severity Reaction Status Date / Time No Known Allergies Allergy Verified 07/09/24 19:07 Review of Systems Review of Systems Systems Reviewed: All systems reviewed, normal except as documented Past Medical History Past Medical History NEUROLOGIC: Positive Seizures CARDIAC: Positive Hypercholesterolemia and Hypertension MUSCULOSKELETAL: Positive Gout OTHER HISTORY: Positive Falls Family History FAMILY HISTORY: Negative Family Cardiac Disorders Social History SMOKING STATUS: Current every day smoker ED Exam General Limitations: Present no limitations General appearance: Present alert and in no apparent distress Head Head exam: Present atraumatic Eye Eye exam: Present normal appearance and PERRL ENT ENT exam: Present normal exam and mucous membranes moist Neck Neck exam: Present normal inspection and full ROM Chest Chest inspection: Present normal inspection and symmetric chest wall rise Respiratory Respiratory exam: Present normal lung sounds bilaterally Cardiovascular Cardiovascular exam: Present regular rate, normal rhythm and normal heart sounds Abdominal Exam Abdominal exam: Present soft and normal bowel sounds Extremities Exam Extremities exam: Present normal inspection and full ROM Back Exam Back exam: Present normal inspection and full ROM Neurological Exam Neurological exam: Present alert and oriented X3; Absent motor sensory deficit Psychiatric Psychiatric exam: Present normal affect and normal mood Skin Skin exam: Present warm, dry, intact and normal color Course Course Course Narrative: Chest X-ray is ordered for determining etiology of CP. Quality Measures none Orders Category Date Time Status EKG (ED ONLY) *Do not use* NOW Care 07/09/24 18:43 Completed CXRP [XR chest 1V portable] Stat Exams 07/09/24 18:42 Completed EKG (ED Only) Stat Exams 07/09/24 18:42 Draft CBC Stat Lab 07/09/24 19:18 Completed CMP [Comprehensive Metabolic Panel] Stat Lab 07/09/24 19:18 Completed Drug Screen,Urine Stat Lab 07/09/24 20:17 Completed Troponin I Stat Lab 07/09/24 19:18 Completed Vital Signs Vital signs: Vital Signs Temperature 98.1 F 07/09/24 19:06 Pulse Rate 75 07/09/24 19:06 Respiratory Rate 14 07/09/24 19:06 Blood Pressure 124/83 07/09/24 19:06 Pulse Oximetry (%) 97 07/09/24 19:06 Oxygen Delivery Method Room Air 07/09/24 19:06 Chest Pain MDM Narrative [facility] Narrative:: Differential diagnosis: Non-STEMI, STEMI, electro abnormality, dehydration, drug use, EKG: Time, heart rate, intervals, low voltage, no ST elevations or depressions. QTc 417. Impression: No ST elevation [place] or ischemia Previous EKG from 424 unchanged A/P: This is a 54-year-old male with history of hypertension high cholesterol presenting to the emergency department with atypical chest pain. While in the emergency department the patient had an EKG that is not worrisome for cardiac disease. Labs are consistent with within normal limits. EDC: While in the emergency department the patient is given IV fluids. Troponin x 2 are negative. Patient data External records reviewed:: [facility] previous records (See in ED 07/07/24 For CP rule out) Clinical information provided by:: patient and EMS Social determinants that could affect healthcare access:: none Patient has the following chronic illnesses:: Hypertension, high cholesterol. How is presenting disease/condition affected by chronic disease/condition?: no chronic disease Evaluation data The following diagnostics were reviewed and interpreted by me:: lab results and radiology exam(s) Lab and/or radiology exams considered but not ordered:: Have them fix your spirit you are saying now so that you could see the labs on the side this is ridiculous you have to go back and forth 6.21 used to be like that if driving crazy hemoglobin 13/40 which is normal Platelets are 232 which is normal electrolytes are normal. And creatinine are normal. Urinalysis does not show drug screen. None Interpretation Summary: CXR: Reviewed and interpreted by me. Pending radiology interpretation. No evidence of pneumothorax, cardiomegaly, or pneumonia. Impression no acute findings RADS: PA chest single view FINDINGS: Normal heart size. Lungs are clear. Old left-sided rib fractures IMPRESSION: No active disease Medications / Prescriptions Medications or Prescriptions considered but not ordered:: None Medication administrations:: As above Consultations Consultation(s) initiated? (list below): No Diagnosis Chest Pain Differential Diagnosis: pneumothorax, atypical chest pain, chest pain and other (Non-STEMI, STEMI, electro abnormality, dehydration, drug use,) Most likely diagnosis given after review of the tests above:: Atypical chest pain Admission Indicated Admission indicated?: not indicated Admission Request Was there a request for admission?: No Disposition Plan Disposition Plan: Discharge Discharge Attestation Discharge Attestation: The patient and all family members were given an opportunity to ask questions and understood the discharge instructions. Discharge instructions specifically effects, indications for sooner follow up or return to the emergency department, and the expected course of current diagnosis. Patient condition: Stable Discharge Plan Plan Patient Disposition: Elopement Prescriptions/Referrals Prescriptions/Med Rec: No Action benazepril 40 mg Tablet 40 mg PO DAILY atorvastatin 20 mg Tablet 20 mg PO DAILY atenolol 100 mg Tablet 100 mg PO DAILY amlodipine 10 mg Tablet 10 mg PO DAILY Referrals: Terence Eli MD [Primary Care Provider] - In 1 week Problem List Clinical Impression: Eloped from emergency department Patient/Caregiver Discharge Instructions Print Language: Macanese
[2024-07-09 19:06] VITALS: BP 124/83; PULSE 75; RESP 14; TEMP 36.7; O2SAT 97
[2024-07-09 19:07] VITALS: PULSE 77; RESP 18; O2SAT 98
[2024-07-09 19:26] LABS: Basophils % (Auto) 1 % (0-2.5); Eosinophils # (Auto) 0.1 Thou/mm3 (0.0-0.5); Eosinophils % (Auto) 2 % (0-10); Hemoglobin 13.8 g/dL (13.5-16.0); Immature Granulocytes % (Auto) 0 % (0-0); Immature Granulocytes Auto 0.01 Thou/mm3 (0.00-0.00); Lymphocytes # (Auto) 1.7 Thou/mm3 (1.0-4.8); Lymphocytes % (Auto) 28 % (10-50); Mean Corpuscular HGB Conc 32.9 g/dl (31.0-37.0); Mean Corpuscular Hemoglobin 28.6 pg (25.0-35.0); Mean Corpuscular Volume 87 fL (80-100); Monocytes # (Auto) 0.6 Thou/mm3 (0.0-0.8); Monocytes % (Auto) 10 % (0-12); Neutrophils # (Auto) 3.7 Thou/mm3 (1.8-7.7); Neutrophils % (Auto) 59 % (37-80); Nucleated Red Blood Cell % 0 /100 WBC (0); Platelet Count 232 Thou/mm3 (140-440); RDW Standard Deviation 44.8 fL (35.1-43.9); Red Blood Count 4.83 Miln/mm3 (4.50-5.90); White Blood Count 6.2 Thou/mm3 (3.8-10.6)
[2024-07-09 19:47] LABS: Alanine Aminotransferase 17 U/L (10-49); Albumin, Serum 4.2 gm/dL (3.5-5.0); Albumin/Globulin Ratio 1.7 (1.2-2.2); Alkaline Phosphatase 66 U/L (46-116); Anion Gap 8 (7-16); Aspartate Amino Transferase 20 U/L (0-34); BUN/Creatinine Ratio 9 Ratio (12-20); Bilirubin,Total 0.4 mg/dL (0.3-1.2); Blood Urea Nitrogen 8 mg/dL (9-23); Calcium 8.6 mg/dL (8.3-10.6); Calcium (Corrected) 8.6 mg/dL (8.5-10.1); Carbon Dioxide 24.8 mMol/L (20.0-31.0); Chloride 103 mMol/L (98-107); Creatinine (Component) 0.9 mg/dL (0.6-1.3); Globulin 2.5 gm/dL (2.3-3.5); Glucose 97 mg/dL (74-106); Osmolality,Calculated 270 (275-295); Potassium 3.9 mMol/L (3.4-5.1); Sodium 136 mMol/L (136-145); Total Protein 6.7 gm/dL (5.7-8.2); Troponin I < 0.002 ng/mL (0.0-0.045); eGFR > 60 See Note
[2024-07-09 21:28] LABS: Amphetamine/Methamp Scrn,U Negative (Negative); Barbiturate Screen,Urine Negative (Negative); Benzodiazepines Screen,Urine Negative (Negative); Benzoylecgonine Screen, Ur Negative (Negative); Fentanyl Screen,Urine Negative (Negative); Opiate Screen,Urine Negative (Negative); THC Screen,Urine Negative (Negative)
== END 2024-07-10 02:32 | disposition left against medical advice (07) ==
LOC: SERX 20:12
PROVIDERS: Emergency Provider Emergency Medicine; PCP Internal Medicine
DX: R07.89 Other chest pain (principal); I45.10 Unspecified right bundle-branch block; I10 Essential (primary) hypertension; E78.00 Pure hypercholesterolemia, unspecified; Z53.29 Procedure and treatment not carried out because of patient's decision for other reasons
CPT/HCPCS: 36415; 71045; 80053; 80307; 84484; 85025; 99281

== ENCOUNTER 2024-07-10 07:29 | Emergency (ER) | payer MEDICARE, MEDICAID, SELFPAY ==
[2024-07-10 07:31] VITALS: PULSE 64; RESP 18; O2SAT 98; BMI 26.2
[2024-07-10 07:47] VITALS: BP 136/86; PULSE 58; RESP 16; TEMP 36.7; O2SAT 99; BMI 25.9
--- NOTE | 2024-07-10 08:06 | PD.EDRME ---
Rapid Medical Screening Exam RME Arrival date/time: 07/10/24 07:29 This is a 54-year-old male that comes in with complaints of chest pain and shortness of breath that started yesterday. Patient was seen yesterday had labs done and EKG done and eloped. Patient does have a history of high blood pressure, diabetes, and hyperlipidemia. Patient states that he has been taking his medications for the last 3 days. Patient's thinks that this is why he is having his symptoms. I have greeted and performed a focused initial assessment of this patient. Initial appropriate labs ordered at this time. A comprehensive ED assessment and evaluation of the patient and analysis of all test and completion of medical decision making process will be conducted by additional ED provider. Chief Complaint: General Adult/Misc Complain Time Seen by Provider: 07/10/24 07:40 Vital signs: Vital Signs Temperature 98.1 F 07/10/24 07:47 Pulse Rate 58 L 07/10/24 07:47 Respiratory Rate 16 07/10/24 07:47 Blood Pressure 136/86 H 07/10/24 07:47 Pulse Oximetry (%) 99 07/10/24 07:47 Oxygen Delivery Method Room Air 07/10/24 07:47
--- NOTE | 2024-07-10 08:08 | EKG_ITS ---
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
--- NOTE | 2024-07-10 08:26 | PC.NURSE ---
pt stating he needs to leave for work. pt encouraged to stay for workup. pt signed AMA form and left ED.
[2024-07-10 08:34] LABS: Basophils % (Auto) 1 % (0-2.5); Eosinophils # (Auto) 0.1 Thou/mm3 (0.0-0.5); Eosinophils % (Auto) 2 % (0-10); Hematocrit 43.8 % (41.0-53.0); Hemoglobin 14.5 g/dL (13.5-16.0); Immature Granulocytes % (Auto) 0 % (0-0); Immature Granulocytes Auto 0.01 Thou/mm3 (0.00-0.00); Lymphocytes # (Auto) 1.3 Thou/mm3 (1.0-4.8); Lymphocytes % (Auto) 22 % (10-50); Mean Corpuscular HGB Conc 33.1 g/dl (31.0-37.0); Mean Corpuscular Hemoglobin 28.9 pg (25.0-35.0); Mean Corpuscular Volume 87 fL (80-100); Monocytes # (Auto) 0.6 Thou/mm3 (0.0-0.8); Monocytes % (Auto) 9 % (0-12); Neutrophils % (Auto) 66 % (37-80); Nucleated Red Blood Cell % 0 /100 WBC (0); Platelet Count 254 Thou/mm3 (140-440); RDW Standard Deviation 45.8 fL (35.1-43.9); Red Blood Count 5.01 Miln/mm3 (4.50-5.90)
[2024-07-10 08:53] LABS: Alanine Aminotransferase 16 U/L (10-49); Albumin, Serum 4.6 gm/dL (3.5-5.0); Albumin/Globulin Ratio 1.8 (1.2-2.2); Alkaline Phosphatase 70 U/L (46-116); Anion Gap 7 (7-16); Aspartate Amino Transferase 19 U/L (0-34); BUN/Creatinine Ratio 10 Ratio (12-20); Bilirubin,Total 0.8 mg/dL (0.3-1.2); Blood Urea Nitrogen 10 mg/dL (9-23); Calcium 8.9 mg/dL (8.3-10.6); Calcium (Corrected) 8.9 mg/dL (8.5-10.1); Carbon Dioxide 28.5 mMol/L (20.0-31.0); Chloride 106 mMol/L (98-107); Estimated Creatinine Clearance 93.8 mL/min (>60); Globulin 2.5 gm/dL (2.3-3.5); Glucose 151 mg/dL (74-106); Osmolality,Calculated 283 (275-295); Potassium 4.3 mMol/L (3.4-5.1); Sodium 141 mMol/L (136-145); Total Protein 7.1 gm/dL (5.7-8.2); Troponin I < 0.002 ng/mL (0.0-0.045); eGFR > 60 See Note
[2024-07-10 08:55] LABS: B-Type Natriuretic Peptide 36 pg/mL (0-100)
== END 2024-07-10 08:30 | disposition left against medical advice (07) ==
LOC: SERX 07:55
PROVIDERS: Nurse Practitioner Family; Emergency Provider Emergency Medicine; PCP Internal Medicine
DX: E11.9 Type 2 diabetes mellitus without complications (principal); E78.5 Hyperlipidemia, unspecified; Z53.29 Procedure and treatment not carried out because of patient's decision for other reasons
CPT/HCPCS: 36415; 80053; 83880; 84484; 85025; 93005; 99281

== ENCOUNTER 2024-07-11 07:32 | Emergency (ER) | payer MEDICARE, MEDICAID, SELFPAY ==
[2024-07-11 07:33] VITALS: PULSE 60; RESP 16; O2SAT 100; BMI 26.3
--- NOTE | 2024-07-11 07:39 | EKG_ITS ---
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
--- NOTE | 2024-07-11 07:39 | XR_ITS ---
Examination: PA lateral chest 2 views TECHNIQUE: Upright PA lateral chest 2 views Exam date and time: July 11, 2024 0759 hours Comparison July 09, 2024 INDICATIONS: Acute chest pain today FINDINGS: Normal heart size. Lungs are clear. The osseous structures are intact IMPRESSION: No active disease
[2024-07-11 07:46] VITALS: BP 120/78; PULSE 62; RESP 18; TEMP 36.8; O2SAT 97
[2024-07-11 08:06] LABS: Basophils % (Auto) 1 % (0-2.5); Eosinophils # (Auto) 0.1 Thou/mm3 (0.0-0.5); Eosinophils % (Auto) 2 % (0-10); Hematocrit 44.5 % (41.0-53.0); Hemoglobin 14.5 g/dL (13.5-16.0); Immature Granulocytes % (Auto) 0 % (0-0); Immature Granulocytes Auto 0.01 Thou/mm3 (0.00-0.00); Lymphocytes # (Auto) 1.4 Thou/mm3 (1.0-4.8); Lymphocytes % (Auto) 22 % (10-50); Mean Corpuscular HGB Conc 32.6 g/dl (31.0-37.0); Mean Corpuscular Hemoglobin 28.9 pg (25.0-35.0); Mean Corpuscular Volume 89 fL (80-100); Monocytes # (Auto) 0.5 Thou/mm3 (0.0-0.8); Monocytes % (Auto) 8 % (0-12); Neutrophils # (Auto) 4.2 Thou/mm3 (1.8-7.7); Neutrophils % (Auto) 68 % (37-80); Nucleated Red Blood Cell % 0 /100 WBC (0); Platelet Count 246 Thou/mm3 (140-440); RDW Standard Deviation 45.6 fL (35.1-43.9); Red Blood Count 5.01 Miln/mm3 (4.50-5.90); White Blood Count 6.2 Thou/mm3 (3.8-10.6)
[2024-07-11 08:21] LABS: Alanine Aminotransferase 15 U/L (10-49); Albumin, Serum 4.5 gm/dL (3.5-5.0); Albumin/Globulin Ratio 1.8 (1.2-2.2); Alkaline Phosphatase 71 U/L (46-116); Anion Gap 6 (7-16); Aspartate Amino Transferase 16 U/L (0-34); BUN/Creatinine Ratio 10 Ratio (12-20); Bilirubin,Total 0.7 mg/dL (0.3-1.2); Blood Urea Nitrogen 10 mg/dL (9-23); Calcium 8.7 mg/dL (8.3-10.6); Calcium (Corrected) 8.7 mg/dL (8.5-10.1); Carbon Dioxide 29.5 mMol/L (20.0-31.0); Chloride 105 mMol/L (98-107); Estimated Creatinine Clearance 93.8 mL/min (>60); Globulin 2.5 gm/dL (2.3-3.5); Glucose 147 mg/dL (74-106); Magnesium 1.8 mg/dL (1.6-2.6); Osmolality,Calculated 281 (275-295); Sodium 140 mMol/L (136-145); Troponin I < 0.002 ng/mL (0.0-0.045); eGFR > 60 See Note
[2024-07-11 08:25] LABS: Collection Type, Urine Clean Catch
[2024-07-11 08:26] LABS: B-Type Natriuretic Peptide 41 pg/mL (0-100)
[2024-07-11 08:30] LABS: Partial Thromboplastin Time 25.6 Seconds (22.0-36.0); Prothrombin Time 11.1 Seconds (9.0-12.2)
[2024-07-11 08:49] LABS: Bilirubin,Urine Negative (Negative); Blood,Urine Negative (Negative); Clarity,Urine Clear (Clear/Hazy); Color,Urine Yellow (Lt Yel-Yel); Glucose, Urine Negative (Negative); Ketones,Urine Negative (Negative); Leukocyte Esterase,Urine Negative (Negative); Nitrite,Urine Negative (Negative); Protein,Urine Trace (Neg - Trace); RBC,Urine 1 /hpf (0-3); Specific Gravity,Urine 1.032 (1.001-1.035); Squamous Epithelial Cell,Urine < 1 /hpf (0-5); Urobilinogen,Urine Negative mg/dL (0.0-1.0); WBC,Urine < 1 /hpf (0-5)
[2024-07-11 09:06] LABS: Alcohol, Urine Negative (Negative); Amphetamine/Methamp Scrn,U Negative (Negative); Barbiturate Screen,Urine Negative (Negative); Benzodiazepines Screen,Urine Negative (Negative); Benzoylecgonine Screen, Ur Negative (Negative); Fentanyl Screen,Urine Negative (Negative); Opiate Screen,Urine Negative (Negative); THC Screen,Urine Negative (Negative)
[2024-07-11 12:09] LABS: Troponin I < 0.002 ng/mL (0.0-0.045)
--- NOTE | 2024-07-11 12:19 | EDNOTE_ITS ---
<Statement entered by Zulema Shah MD - 07/17/24 02:10> As co-signing physician, I was present and available for consult prn. I concur with the plan and care as documented by the midlevel provider. ED Chest Pain RME/HPI General Chief Complaint: Chest Pain Stated Complaint: L CHEST PAIN SINCE 0700 Time Seen by Provider: 07/11/24 07:51 Arrival date/time: 07/11/24 07:32 54-year-old male presents to the Emergency Department today for complaints of chest pain ongoing since this morning. Patient reports no fever or vomiting patient reports similar episodes in the past Limitations: no limitations Related Data Home Medications ?Medication ?Instructions ?Recorded ?Confirmed amlodipine 10 mg tablet 10 mg PO DAILY 05/19/2109/04 atenolol 100 mg tablet 100 mg PO DAILY 05/19/2109/04 atorvastatin 20 mg tablet 20 mg PO DAILY 05/19/2109/04 benazepril 40 mg tablet 40 mg PO DAILY High Blood Pr essure 05/19/21 05/19/21 Allergies Allergy/AdvReac Type Severity Reaction Status Date / Time No Known Allergies Allergy Verified 07/10/24 07:35 Review of Systems Review of Systems Systems Reviewed: All systems reviewed, normal except as documented Constitutional Constitutional: Reports system reviewed and no additional complaints, except as documented, Denies fever(s) and Denies headache(s) Eyes Eyes: Reports system reviewed and no additional complaints, except as documented and Denies blurry vision ENT Ears, Nose, Mouth, and Throat: Reports system reviewed and no additional complaints, except as documented, Denies headache(s), Denies nasal congestion and Denies nasal discharge Cardiovascular Cardiovascular: Reports system reviewed and no additional complaints, except as documented, Reports chest pain, Denies dyspnea, Denies irregular heart rhythm and Denies leg edema Respiratory Respiratory: Reports system reviewed and no additional complaints, except as documented, Denies chest congestion, Denies cough and Denies dyspnea Gastrointestinal Gastrointestinal: Reports system reviewed and no additional complaints, except as documented and Denies abdominal pain Integumentary/Breasts Skin/Breast: Reports system reviewed and no additional complaints, except as documented and Denies rash Neurologic Neurologic: Reports system reviewed and no additional complaints, except as documented, Reports as per HPI and Denies headache(s) Past Medical History Past Medical History NEUROLOGIC: Positive Seizures CARDIAC: Positive Hypercholesterolemia and Hypertension; Negative Cardiac Disorders or Congestive Heart Failure RESPIRATORY: Negative Chronic Obstructive Pulmonary Disease (COPD) GENITOURINARY: Negative Renal Disease MUSCULOSKELETAL: Positive Gout ENDOCRINE: Negative Diabetes Mellitus Type 1 or Diabetes Mellitus Type 2 OTHER HISTORY: Positive Falls Family History FAMILY HISTORY: Negative Family Cardiac Disorders Social History SMOKING STATUS: Current some day smoker ED Exam General Limitations: Present no limitations General appearance: Present alert and in no apparent distress Head Head exam: Present atraumatic Eye Eye exam: Present normal appearance, PERRL and EOMI ENT ENT exam: Present normal exam, normal oropharynx and mucous membranes moist Neck Neck exam: Present normal inspection, full ROM and trachea midline Chest Chest inspection: Present normal inspection and symmetric chest wall rise Respiratory Respiratory exam: Present normal lung sounds bilaterally; Absent respiratory distress Cardiovascular Cardiovascular exam: Present regular rate, normal rhythm and normal heart sounds; Absent bradycardia, tachycardia, irregular rhythm, systolic murmur, diastolic murmur or JVD Abdominal Exam Abdominal exam: Present soft and normal bowel sounds Extremities Exam Extremities exam: Present normal inspection and full ROM Back Exam Back exam: Present normal inspection and full ROM Neurological Exam Neurological exam: Present alert, oriented X3, CN II-XII intact, normal gait and reflexes normal; Absent motor sensory deficit Psychiatric Psychiatric exam: Present normal affect and normal mood Skin Skin exam: Present warm, dry, intact and normal color Course Quality Measures none Orders Category Date Time Status EKG (ED ONLY) *Do not use* NOW Care 07/11/24 07:39 Completed EKG (ED Only) Stat Exams 07/11/24 07:39 Draft XR chest 2V Stat Exams 07/11/24 07:39 Completed Alcohol, Urine Stat Lab 07/11/24 08:08 Completed B-Type Natriuretic Peptide Stat Lab 07/11/24 07:55 Completed CBC Stat Lab 07/11/24 07:55 Completed Comprehensive Metabolic Panel Stat Lab 07/11/24 07:55 Completed Drug Screen,Urine Stat Lab 07/11/24 08:08 Completed Magnesium Stat Lab 07/11/24 07:55 Completed Partial Thromboplastin Time Stat Lab 07/11/24 07:55 Completed Prothrombin Time with INR Stat Lab 07/11/24 07:55 Completed Troponin I Stat Lab 07/11/24 07:55 Completed Troponin I Stat Lab 07/11/24 11:30 Completed Urinalysis Stat Lab 07/11/24 08:08 Completed Vital Signs Vital signs: Vital Signs Temperature 98.2 F 07/11/24 07:46 Pulse Rate 62 07/11/24 07:46 Respiratory Rate 18 07/11/24 07:46 Blood Pressure 120/78 07/11/24 07:46 Pulse Oximetry (%) 97 07/11/24 07:46 Oxygen Delivery Method Room Air 07/11/24 07:46 o2 sat 97% r/a wnl Procedures -ED EKG Interpretation #1: Date of EK07/11/24 Time of EK:50 Rate: 61 Interpretation: Interpreted by me EKG Impression: Normal sinus rhythm, No acute ST-T changes, No ectopy, No ischemic changes, Normal QRS, Normal intervals and Normal axis Chest Pain MDM Narrative MDM Narrative:: 54-year-old male presents to the Emergency Department today for complaints of chest pain ongoing since this morning. Patient reports no fever or vomiting patient reports similar episodes in the past Lab work as well as imaging obtained no acute emergent findings noted Patient had 2 negative troponins EKG unremarkable Chest x-ray within normal limits Patient discharged home in no distress to follow-up with primary care doctor in the next 24 to 48 hours and for any worsening symptoms to return to the ER immediately Patient data External records reviewed:: [facility] previous records Clinical information provided by:: patient Social determinants that could affect healthcare access:: alcohol use Patient has the following chronic illnesses:: History How is presenting disease/condition affected by chronic disease/condition?: uneffected by Evaluation data The following diagnostics were reviewed and interpreted by me:: lab results, radiology exam(s) and EKG tracing(s) Lab and/or radiology exams considered but not ordered:: Labs, radiology, EKG obtained Interpretation Summary: Reviewed by Medications / Prescriptions Medications or Prescriptions considered but not ordered:: Given Medication administrations:: Given Consultations Consultation(s) initiated? (list below): No Diagnosis Chest Pain Differential Diagnosis: fracture of rib, atypical chest pain, st elevation myocardial infarction and chest pain Most likely diagnosis given after review of the tests above:: Chest pain Admission Indicated Admission indicated?: not indicated Admission Request Was there a request for admission?: No Disposition Plan Disposition Plan: Discharge Discharge Attestation Discharge Attestation: The patient and all family members were given an opportunity to ask questions and understood the discharge instructions. Discharge instructions specifically effects, indications for sooner follow up or return to the emergency department, and the expected course of current diagnosis. Patient condition: Stable Discharge Plan Plan Patient Disposition: HOME (Self Care) Disposition Comment: stable Prescriptions/Referrals Prescriptions/Med Rec: No Action benazepril 40 mg Tablet 40 mg PO DAILY atorvastatin 20 mg Tablet 20 mg PO DAILY atenolol 100 mg Tablet 100 mg PO DAILY amlodipine 10 mg Tablet 10 mg PO DAILY Referrals: Terence Eli MD [Primary Care Provider] - 07/12/24 Problem List Clinical Impression: Chest pain Patient/Caregiver Discharge Instructions Education Materials: ED Chest Pain, Noncardiac Additional Instructions: Please follow up with your primary care doctor in the next 24-48hrs for any worsening symptoms return here immediately Print Language: Mozambican Stand Alone Forms: Donna Award Info., Patient Portal Info Letter PA/ALUMNI RELATIONS OFFICER Supervising Physician PA/ALUMNI RELATIONS OFFICER Supervising Physician: dr shah
[2024-07-11 12:38] VITALS: BP 124/77; PULSE 72; RESP 16; O2SAT 99
== END 2024-07-11 12:39 | disposition home or self-care (01) ==
PROVIDERS: Nurse Practitioner Primary Care; Emergency Provider Emergency Medicine; PCP Internal Medicine
DX: R07.89 Other chest pain (principal); E78.00 Pure hypercholesterolemia, unspecified; I10 Essential (primary) hypertension; F17.210 Nicotine dependence, cigarettes, uncomplicated
CPT/HCPCS: 36415; 71046; 80053; 80307; 80320; 81001; 83735; 83880; 84484; 85025; 85610; 85730; 93005; 99283; G0480

== ENCOUNTER 2024-07-11 16:36 | Emergency (ER) | payer MEDICARE, MEDICAID, SELFPAY ==
[2024-07-11 16:40] VITALS: BP 107/78; PULSE 68; RESP 18; TEMP 38; O2SAT 95
--- NOTE | 2024-07-11 16:43 | EKG_ITS ---
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
[2024-07-11 16:44] VITALS: PULSE 72; RESP 18; O2SAT 95; BMI 26.0
--- NOTE | 2024-07-11 16:44 | EDNOTE_ITS ---
<Statement entered by Zulema Shah MD - 07/17/24 02:10> As co-signing physician, I was present and available for consult prn. I concur with the plan and care as documented by the midlevel provider. ED General RME/HPI General Chief complaint: Chest Pain Stated complaint: CHEST PAIN Time Seen by Provider: 07/11/24 16:39 Arrival date/time: 07/11/24 16:36 CC: Chest pain HPI patient presents the ER via EMS who reports stable vital signs and unremarkable twelve-lead EKG, pain was is 5-6 on 10 scale center chest, the patient was given nitroglycerin at the time of the exam at 1644, the patient is chest pain-free. Review the medical record show the patient was here earlier this afternoon had 2 troponins and was discharged home. Patient is awake alert oriented with no other complaints. Related Data Home Medications ?Medication ?Instructions ?Recorded ?Confirmed amlodipine 10 mg tablet 10 mg PO DAILY 05/19/21/0 09/04 atenolol 100 mg tablet 100 mg PO DAILY 05/19/2109/04 atorvastatin 20 mg tablet 20 mg PO DAILY 05/19/210 09/04 benazepril 40 mg tablet 40 mg PO DAILY High Blood Pr essure 05/19/21 05/19/21 Allergies Allergy/AdvReac Type Severity Reaction Status Date / Time No Known Allergies Allergy Verified 07/12/24 09:47 Review of Systems Review of Systems Narrative Review of Systems: GEN: No fever, no chills, no weight loss EYES: No discharge, no visual changes, no pain HEENT: No ear pain, no congestion, no sore throat PULM: No shortness of breath, no cough, no congestion CV: + chest pain, no dyspnea on exertion, no palpitations GI: No nausea, no vomiting, no diarrhea, no pain, no constipation : No frequency, no urgency, no dysuria MUSC/SKEL: No joint pain, no back pain SKIN: No rash PSYCH: No hallucinations, no depression HEME/LYMPH: No easy bleeding or bruising tendencies NEURO: No weakness, no headache Past Medical History Past Medical History NEUROLOGIC: Positive Seizures CARDIAC: Positive Hypercholesterolemia and Hypertension; Negative Cardiac Disorders or Congestive Heart Failure RESPIRATORY: Negative Chronic Obstructive Pulmonary Disease (COPD) GENITOURINARY: Negative Renal Disease MUSCULOSKELETAL: Positive Gout ENDOCRINE: Negative Diabetes Mellitus Type 1 or Diabetes Mellitus Type 2 OTHER HISTORY: Positive Falls Family History FAMILY HISTORY: Negative Family Cardiac Disorders Social History SMOKING STATUS: Current some day smoker ED Exam Narrative Physical exam: [General: Not in any acute distress Head normocephalic HEENT: Within acceptable limits Neck is supple nontender Chest equal chest rise nontender to palpation Respiratory: Clear to auscultation no wheezes crackles or rubs CV: Rate rhythm is regular no murmurs rubs or clicks Abdomen is soft nontender no masses positive bowel sounds all 4 quadrants Back: No CVA tenderness no spinous process tenderness from cervical spine thoracic and lumbar spine Skin: Intact no petechiae rash induration ulceration or crepitus Extremities: Moving all extremity against resistance cap refill less than 2 seconds neurosensory intact Neuro: Awake alert oriented x3 Glascow coma 15 no focal deficits] Course Quality Measures none Orders Category Date Time Status EKG (ED ONLY) *Do not use* NOW Care 07/11/24 16:43 Completed EKG (ED Only) Stat Exams 07/11/24 16:43 Draft Troponin I Stat Lab 07/11/24 17:21 Completed Vital Signs Vital signs: Vital Signs Temperature 100.4 F 07/11/24 16:40 Pulse Rate 68 07/11/24 16:40 Respiratory Rate 18 07/11/24 16:40 Blood Pressure 107/78 07/11/24 16:40 Pulse Oximetry (%) 95 07/11/24 16:40 Oxygen Delivery Method Room Air 07/11/24 16:40 Discharge Plan Plan Patient Disposition: HOME (Self Care) Patient condition on transfer: Stable Prescriptions/Referrals Prescriptions/Med Rec: No Action benazepril 40 mg Tablet 40 mg PO DAILY atorvastatin 20 mg Tablet 20 mg PO DAILY atenolol 100 mg Tablet 100 mg PO DAILY amlodipine 10 mg Tablet 10 mg PO DAILY Referrals: Terence Eli MD [Primary Care Provider] - In 1 week Problem List Clinical Impression: Atypical chest pain Patient/Caregiver Discharge Instructions Education Materials: ED Chest Pain, Uncertain Cause Print Language: Swedish Stand Alone Forms: Donna Award Info., Patient Portal Info Letter PA/COUNTY HOME DEMONSTRATION AGENT Supervising Physician PA/COUNTY HOME DEMONSTRATION AGENT Supervising Physician: Braden Gautam ENP MDM Patient Acuity High Acuity (complete MDM) Narrative: Seen today for chest pain and had initial and a delta troponin that were both negative. Clinical Information Provided by: patient and EMS Medical Records reviewed [facility] and EMS Meds/Rx considered, not ordered None Labs/Rad/Tests considered, not ordered None Chronic Illness/Social Conditions Explain: Hypertension EKG EKG Interpretation(s): EKG performed at 1646 shows ventricular rate of 6X [place] 166 QRS of 109 QTc of 425 the sinus rhythm.
[2024-07-11 18:40] LABS: Troponin I < 0.002 ng/mL (0.0-0.045)
[2024-07-11 19:32] VITALS: BP 113/78; PULSE 63; RESP 18; O2SAT 98
== END 2024-07-11 19:32 | disposition home or self-care (01) ==
PROVIDERS: Registered Nurse General Practice; Emergency Provider Emergency Medicine; PCP Internal Medicine
DX: R07.89 Other chest pain (principal); I10 Essential (primary) hypertension; E78.00 Pure hypercholesterolemia, unspecified; F17.210 Nicotine dependence, cigarettes, uncomplicated
CPT/HCPCS: 36415; 84484; 93005; 99283

== ENCOUNTER 2024-07-12 09:39 | Emergency (ER) | payer MEDICARE, MEDICAID, SELFPAY ==
[2024-07-12 09:42] VITALS: PULSE 60; O2SAT 99; BMI 26.0
--- NOTE | 2024-07-12 09:49 | EKG_ITS ---
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
[2024-07-12 09:51] VITALS: BP 124/79; PULSE 59; RESP 18; TEMP 36.6; O2SAT 98
[2024-07-12 10:45] LABS: Troponin I < 0.002 ng/mL (0.0-0.045)
--- NOTE | 2024-07-12 10:47 | EDNOTE_ITS ---
ED Headache RME/HPI General Chief Complaint: Headache Stated Complaint: HEADACHE, CHEST PAIN Time Seen by Provider: 07/12/24 09:54 Arrival date/time: 07/12/24 09:39 54-year-old male with history of hypertension hypercholesterolemia presents to the emergency department today for complaints of chest pain. Patient was evaluated 3 times yesterday for the same. Limitations: no limitations Related Data Home Medications ?Medication ?Instructions ?Recorded ?Confirmed amlodipine 10 mg tablet 10 mg PO DAILY 05/19/2109/04 atenolol 100 mg tablet 100 mg PO DAILY 05/19/2109/04 atorvastatin 20 mg tablet 20 mg PO DAILY 05/19/2109/04 benazepril 40 mg tablet 40 mg PO DAILY High Blood Pr essure 05/19/21 05/19/21 Allergies Allergy/AdvReac Type Severity Reaction Status Date / Time No Known Allergies Allergy Verified 07/12/24 09:47 Review of Systems Review of Systems Systems Reviewed: All systems reviewed, normal except as documented Constitutional Constitutional: Reports system reviewed and no additional complaints, except as documented, Denies fatigue, Denies fever(s) and Denies headache(s) Eyes Eyes: Reports system reviewed and no additional complaints, except as documented and Denies blurry vision ENT Ears, Nose, Mouth, and Throat: Reports system reviewed and no additional complaints, except as documented, Denies headache(s), Denies nasal congestion and Denies nasal discharge Cardiovascular Cardiovascular: Reports system reviewed and no additional complaints, except as documented, Reports chest pain and Denies dyspnea Respiratory Respiratory: Reports system reviewed and no additional complaints, except as documented, Denies chest congestion, Denies cough and Denies dyspnea Gastrointestinal Gastrointestinal: Reports system reviewed and no additional complaints, except as documented and Denies abdominal pain Musculoskeletal Musculoskeletal: Reports system reviewed and no additional complaints, except as documented, Denies abnormal gait, Denies numbness, Denies stiffness and Denies tingling Integumentary/Breasts Skin/Breast: Reports system reviewed and no additional complaints, except as documented and Denies rash Neurologic Neurologic: Reports system reviewed and no additional complaints, except as documented, Reports as per HPI, Denies abnormal gait, Denies headache(s), Denies numbness and Denies tingling Psychiatric Psychiatric: Reports system reviewed and no additional complaints, except as documented and Reports anxiety Endocrine Endocrine: Denies fatigue Past Medical History Past Medical History NEUROLOGIC: Positive Seizures CARDIAC: Positive Hypercholesterolemia and Hypertension; Negative Cardiac Disorders or Congestive Heart Failure RESPIRATORY: Negative Chronic Obstructive Pulmonary Disease (COPD) GENITOURINARY: Negative Renal Disease MUSCULOSKELETAL: Positive Gout ENDOCRINE: Negative Diabetes Mellitus Type 1 or Diabetes Mellitus Type 2 OTHER HISTORY: Positive Falls Family History FAMILY HISTORY: Negative Family Cardiac Disorders Social History SMOKING STATUS: Never smoker ED Exam General Limitations: Present no limitations General appearance: Present alert and in no apparent distress Head Head exam: Present atraumatic, normocephalic and normal inspection Eye Eye exam: Present normal appearance, PERRL and EOMI; Absent conjunctival injection ENT ENT exam: Present normal exam, normal oropharynx and mucous membranes moist Neck Neck exam: Present normal inspection, full ROM and trachea midline Chest Chest inspection: Present normal inspection and symmetric chest wall rise Respiratory Respiratory exam: Present normal lung sounds bilaterally; Absent respiratory distress Cardiovascular Cardiovascular exam: Present regular rate, normal rhythm and normal heart sounds; Absent tachycardia, irregular rhythm, systolic murmur or diastolic murmur Abdominal Exam Abdominal exam: Present soft and normal bowel sounds Extremities Exam Extremities exam: Present normal inspection and full ROM Back Exam Back exam: Present normal inspection and full ROM Neurological Exam Neurological exam: Present alert, oriented X3 and CN II-XII intact Psychiatric Psychiatric exam: Present normal affect and normal mood Skin Skin exam: Present warm, dry, intact and normal color Course Quality Measures none Orders Category Date Time Status EKG (ED ONLY) *Do not use* NOW Care 07/12/24 09:49 Completed EKG (ED Only) Stat Exams 07/12/24 09:49 Draft Troponin I Stat Lab 07/12/24 10:10 Completed Vital Signs Vital signs: Vital Signs Temperature 97.8 F 07/12/24 09:51 Pulse Rate 59 L 07/12/24 09:51 Respiratory Rate 18 07/12/24 09:51 Blood Pressure 124/79 07/12/24 09:51 Pulse Oximetry (%) 98 07/12/24 09:51 Oxygen Delivery Method Room Air 07/12/24 09:51 O2 saturation 98% room air within the limits Procedures -ED EKG Interpretation #1: Date of EK07/12/24 Time of EK:53 Rate: 62 Interpretation: Interpreted by me EKG Impression: Normal sinus rhythm, No acute ST-T changes, No ectopy, No ischemic changes, Normal QRS, Normal intervals and Normal axis Headache MDM Narrative MDM Narrative:: 54-year-old male with history of hypertension hypercholesterolemia presents to the emergency department today for complaints of chest pain. Patient was evaluated 3 times yesterday for the same. On exam patient well-appearing patient does not appear ill or toxic in no acute distress EKG and troponin obtained both of which are unremarkable Patient does appear to be anxious and does report anxiety as well. Patient discharged home in no distress to follow-up with primary care doctor in the next 24 to 48 hours and for any worsening symptoms to return to the ER immediately Patient data External records reviewed:: [facility] previous records Clinical information provided by:: patient Social determinants that could affect healthcare access:: none Patient has the following chronic illnesses:: History How is presenting disease/condition affected by chronic disease/condition?: caused by Evaluation data The following diagnostics were reviewed and interpreted by me:: lab results and EKG tracing(s) Lab and/or radiology exams considered but not ordered:: EKG obtained Interpretation Summary: Reviewed by me Medications / Prescriptions Medications or Prescriptions considered but not ordered:: No meds Medication administrations:: Given no meds Consultations Consultation(s) initiated? (list below): No Diagnosis Differential diagnosis headache: migraine, tension headache and other (Anxiety, chest pain) Most likely diagnosis given after review of the tests above:: Chest pain, anxiety Admission Indicated Admission indicated?: not indicated Admission Request Was there a request for admission?: No Disposition Plan Disposition Plan: Discharge Discharge Attestation Discharge Attestation: The patient and all family members were given an opportunity to ask questions and understood the discharge instructions. Discharge instructions specifically effects, indications for sooner follow up or return to the emergency department, and the expected course of current diagnosis. Patient condition: Stable Discharge Plan Plan Patient Disposition: HOME (Self Care) Disposition Comment: Stable Patient condition on transfer: Stable Prescriptions/Referrals Prescriptions/Med Rec: No Action benazepril 40 mg Tablet 40 mg PO DAILY atorvastatin 20 mg Tablet 20 mg PO DAILY atenolol 100 mg Tablet 100 mg PO DAILY amlodipine 10 mg Tablet 10 mg PO DAILY Referrals: Terence Eli MD [Primary Care Provider] - In 1 week Problem List Clinical Impression: Chest pain, non-cardiac, Anxiety about health Patient/Caregiver Discharge Instructions Education Materials: ED Chest Pain, Noncardiac Additional Instructions: Please follow up with your primary care doctor in the next 24-48hrs for any worsening symptoms return here immediately Print Language: [place] Stand Alone Forms: Donna Award Info., Patient Portal Info Letter PA/EDGE STAINER Supervising Physician PA/EDGE STAINER Supervising Physician: Dr galeas
== END 2024-07-12 11:09 | disposition home or self-care (01) ==
PROVIDERS: Nurse Practitioner Primary Care; Emergency Provider Emergency Medicine; PCP Internal Medicine
DX: R07.89 Other chest pain (principal); F41.9 Anxiety disorder, unspecified; E78.00 Pure hypercholesterolemia, unspecified; I10 Essential (primary) hypertension
CPT/HCPCS: 36415; 84484; 93005; 99283

== ENCOUNTER 2024-07-15 19:21 | Emergency (ER) | payer MEDICARE, MEDICAID, SELFPAY | END 2024-07-15 20:00 | disposition left against medical advice (07) | LOC: SERX 20:11 | PROVIDERS: Emergency Provider Emergency Medicine | DX: Z53.21 Procedure and treatment not carried out due to patient leaving prior to being seen by health care provider (principal) ==

== ENCOUNTER 2024-07-16 09:33 | Emergency (ER) | payer MEDICARE, MEDICAID, SELFPAY ==
[2024-07-16 09:34] VITALS: PULSE 64; O2SAT 98
[2024-07-16 09:45] VITALS: BP 118/79; PULSE 61; RESP 17; TEMP 36.9; O2SAT 97; BMI 25.0
--- NOTE | 2024-07-16 09:58 | PD.EDRME ---
Rapid Medical Screening Exam E Arrival date/time: 07/16/24 09:33 This is a 54-year-old male that comes in with complaints of chest pain. Patient has been here 6 visit in the last week and a half with similar complaints. Patient's states that he checked his blood pressure at his friend's house and it was elevated. Patient does have a history of diabetes high blood pressure and high cholesterol. Patient denies anxiety. Patient complains of a mild headache 2 out of 10. I have greeted and performed a focused initial assessment of this patient. Initial appropriate labs ordered at this time. A comprehensive ED assessment and evaluation of the patient and analysis of all test and completion of medical decision making process will be conducted by additional ED provider. Time Seen by Provider: 07/16/24 09:39 Vital signs: Vital Signs Temperature 98.5 F 07/16/24 09:45 Pulse Rate 61 07/16/24 09:45 Respiratory Rate 17 07/16/24 09:45 Blood Pressure 118/79 07/16/24 09:45 Pulse Oximetry (%) 97 07/16/24 09:45 Oxygen Delivery Method Room Air 07/16/24 09:45
--- NOTE | 2024-07-16 09:59 | EKG_ITS ---
[facility] Test Date: 2024-07-16 Pat Name: LUISA MURGUIA Department: Room: - Gender: Male Production Hand: : 1970 Requested By: Rita Olvera Order Number: [id number] Reading MD: Rita Olvera Measurements Intervals [place] Rate: 64 P: 64 [place]: 162 QRS: 28 QRSD: 108 T: 2 QT: 409 QTc: 422 Interpretive Statements SINUS RHYTHM Compared to ECG 07/12/2024 09:53:14 No significant changes /store/S0/[id number].pdf
--- NOTE | 2024-07-16 09:59 | XR_ITS ---
Examination: PA lateral chest 2 views TECHNIQUE: Upright PA lateral chest 2 views Exam date and time: July 16, 2024 1142 hours Comparison July 11, 2024 INDICATIONS: Chest pain beginning one day ago. FINDINGS: Normal heart size. No pneumonia or pulmonary edema. Old left-sided rib fractures Impression: No active disease
--- NOTE | 2024-07-16 11:09 | PC.NURSE ---
Called child protective investigator, spoke with maude regarding contacting radiologist, Dr. Reyes regarding reading xray, per Maude she will contact Radiologist
[2024-07-16 11:34] LABS: Basophils % (Auto) 1 % (0-2.5); Eosinophils # (Auto) 0.1 Thou/mm3 (0.0-0.5); Eosinophils % (Auto) 1 % (0-10); Hematocrit 43.3 % (41.0-53.0); Hemoglobin 14.3 g/dL (13.5-16.0); Immature Granulocytes % (Auto) 0 % (0-0); Immature Granulocytes Auto 0.02 Thou/mm3 (0.00-0.00); Lymphocytes # (Auto) 1.4 Thou/mm3 (1.0-4.8); Lymphocytes % (Auto) 23 % (10-50); Mean Corpuscular Hemoglobin 28.8 pg (25.0-35.0); Mean Corpuscular Volume 87 fL (80-100); Monocytes # (Auto) 0.5 Thou/mm3 (0.0-0.8); Monocytes % (Auto) 8 % (0-12); Neutrophils # (Auto) 4.2 Thou/mm3 (1.8-7.7); Neutrophils % (Auto) 67 % (37-80); Nucleated Red Blood Cell % 0 /100 WBC (0); Platelet Count 251 Thou/mm3 (140-440); Red Blood Count 4.97 Miln/mm3 (4.50-5.90); White Blood Count 6.3 Thou/mm3 (3.8-10.6)
--- NOTE | 2024-07-16 11:45 | PC.NURSE ---
CALLED PT AT 11:45 TO RE-VITAL NO ANSWER X 1.
[2024-07-16 11:50] LABS: B-Type Natriuretic Peptide < 20 pg/mL (0-100)
[2024-07-16 11:54] LABS: Alanine Aminotransferase 13 U/L (10-49); Albumin, Serum 4.6 gm/dL (3.5-5.0); Albumin/Globulin Ratio 1.8 (1.2-2.2); Alkaline Phosphatase 71 U/L (46-116); Anion Gap 10 (7-16); Aspartate Amino Transferase 15 U/L (0-34); BUN/Creatinine Ratio 10 Ratio (12-20); Blood Urea Nitrogen 10 mg/dL (9-23); Calcium 8.6 mg/dL (8.3-10.6); Calcium (Corrected) 8.6 mg/dL (8.5-10.1); Carbon Dioxide 26.7 mMol/L (20.0-31.0); Chloride 103 mMol/L (98-107); Estimated Creatinine Clearance 93.8 mL/min (>60); Globulin 2.6 gm/dL (2.3-3.5); Glucose 113 mg/dL (74-106); Osmolality,Calculated 279 (275-295); Potassium 3.8 mMol/L (3.4-5.1); Sodium 140 mMol/L (136-145); Total Protein 7.2 gm/dL (5.7-8.2); Troponin I < 0.002 ng/mL (0.0-0.045); eGFR > 60 See Note
--- NOTE | 2024-07-16 13:11 | PC.NURSE ---
CALLED FROM LOBBY AND NO ANSWER
--- NOTE | 2024-07-16 13:17 | PC.NURSE ---
called from lobby and no answer. Pt not found inside the e.d. or outside
== END 2024-07-16 13:18 | disposition left against medical advice (07) ==
LOC: SERX 10:02
PROVIDERS: Nurse Practitioner Family; Emergency Provider Emergency Medicine; PCP Internal Medicine
DX: R07.9 Chest pain, unspecified (principal); R03.0 Elevated blood-pressure reading, without diagnosis of hypertension; E78.00 Pure hypercholesterolemia, unspecified; E11.9 Type 2 diabetes mellitus without complications; Z53.29 Procedure and treatment not carried out because of patient's decision for other reasons
CPT/HCPCS: 36415; 71046; 80053; 83880; 84484; 85025; 93005; 99281

== ENCOUNTER 2024-07-24 10:47 | Emergency (ER) | payer MEDICARE, MEDICAID, SELFPAY ==
[2024-07-24 10:57] VITALS: PULSE 64; O2SAT 98
[2024-07-24 11:09] VITALS: BP 113/77; PULSE 67; RESP 17; TEMP 36.7; O2SAT 97
--- NOTE | 2024-07-24 11:12 | EKG_ITS ---
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
--- NOTE | 2024-07-24 11:12 | XR_ITS ---
Examination: PA lateral chest 2 views Technique: Upright PA lateral chest 2 views Date and time: July 24, 2024 1204 hrs. Comparison July 16, 2024 Indications: Chest pain today. Findings: Normal heart size. Lungs are clear. Osseous structures are intact Impression: No active disease
--- NOTE | 2024-07-24 11:13 | PD.EDRME ---
Rapid Medical Screening Exam RME Arrival date/time: 07/24/24 10:47 54-year-old male with a history of hypertension, hyperlipidemia presents to the emergency room with a chief complaint of 8 out of 10 sternal chest pain that began 1 hour ago I have greeted and performed a focused initial assessment of this patient. A comprehensive ED assessment and evaluation of the patient, analysis of all test results, and completion of the medical decision making process will be conducted by additional ED providers. Time Seen by Provider: 07/24/24 10:57 Vital signs: Vital Signs Temperature 98.0 F 07/24/24 11:09 Pulse Rate 67 07/24/24 11:09 Respiratory Rate 17 07/24/24 11:09 Blood Pressure 113/77 07/24/24 11:09 Pulse Oximetry (%) 97 07/24/24 11:09 Oxygen Delivery Method Room Air 07/24/24 11:09 Vital signs reviewed by provider: Yes
[2024-07-24 11:46] LABS: Basophils % (Auto) 1 % (0-2.5); Eosinophils # (Auto) 0.1 Thou/mm3 (0.0-0.5); Eosinophils % (Auto) 1 % (0-10); Hematocrit 43.1 % (41.0-53.0); Hemoglobin 14.3 g/dL (13.5-16.0); Immature Granulocytes % (Auto) 0 % (0-0); Immature Granulocytes Auto 0.01 Thou/mm3 (0.00-0.00); Lymphocytes # (Auto) 1.3 Thou/mm3 (1.0-4.8); Lymphocytes % (Auto) 22 % (10-50); Mean Corpuscular HGB Conc 33.2 g/dl (31.0-37.0); Mean Corpuscular Hemoglobin 29.3 pg (25.0-35.0); Mean Corpuscular Volume 88 fL (80-100); Monocytes # (Auto) 0.5 Thou/mm3 (0.0-0.8); Monocytes % (Auto) 9 % (0-12); Neutrophils # (Auto) 4.1 Thou/mm3 (1.8-7.7); Neutrophils % (Auto) 67 % (37-80); Nucleated Red Blood Cell % 0 /100 WBC (0); Platelet Count 243 Thou/mm3 (140-440); RDW Standard Deviation 45.6 fL (35.1-43.9); Red Blood Count 4.88 Miln/mm3 (4.50-5.90)
--- NOTE | 2024-07-24 11:52 | PD.EDADULT ---
ED General RME/HPI General Stated complaint: DOESN'T FEEL GOOD AFTER TAKING PRESCRIBED MEDS Time Seen by Provider: 07/24/24 10:57 Arrival date/time: 07/24/24 10:47 CC: Central anterior chest pain HPI onset approximately 2 and half hours ago ended 2 hours ago 3-4 and a 10 scale similar to last visit on 07/11/24, denies any shortness of breath difficulty breathing headache nausea vomiting or diarrhea. Currently the patient has no symptoms RME / HPI RME / HPI narrative: 07/24/24 10:47 54-year-old male with a history of hypertension, hyperlipidemia presents to the emergency room with a chief complaint of 8 out of 10 sternal chest pain that began 1 hour ago I have greeted and performed a focused initial assessment of this patient. A comprehensive ED assessment and evaluation of the patient, analysis of all test results, and completion of the medical decision making process will be conducted by additional ED providers. Related Data Home Medications ?Medication ?Instructions ?Recorded ?Confirmed amlodipine 10 mg tablet 10 mg PO DAILY 05/19/21 05/19/21 atenolol 100 mg tablet 100 mg PO DAILY 05/19/21 05/19/21 atorvastatin 20 mg tablet 20 mg PO DAILY 05/19/21 05/19/21 benazepril 40 mg tablet 40 mg PO DAILY High Blood Pressure 05/19/21 05/19/21 Previous Rx's ?Medication ?Instructions ?Recorded phenobarbital 32.4 mg tablet 32.4 mg PO QDAY #7 tabs 04/18/23 Allergies Allergy/AdvReac Type Severity Reaction Status Date / Time No Known Allergies Allergy Verified 07/24/24 11:03 Review of Systems Review of Systems Narrative Review of Systems: GEN: No fever, no chills, no weight loss EYES: No discharge, no visual changes, no pain HEENT: No ear pain, no congestion, no sore throat PULM: No shortness of breath, no cough, no congestion CV: + chest pain, no dyspnea on exertion, no palpitations GI: No nausea, no vomiting, no diarrhea, no pain, no constipation : No frequency, no urgency, no dysuria MUSC/SKEL: No joint pain, no back pain SKIN: No rash PSYCH: No hallucinations, no depression HEME/LYMPH: No easy bleeding or bruising tendencies NEURO: No weakness, no headache Past Medical History Past Medical History NEUROLOGIC: Positive Seizures CARDIAC: Positive Hypercholesterolemia and Hypertension; Negative Cardiac Disorders or Congestive Heart Failure RESPIRATORY: Negative Chronic Obstructive Pulmonary Disease (COPD) or Asthma GENITOURINARY: Negative Renal Disease MUSCULOSKELETAL: Positive Gout ENDOCRINE: Negative Diabetes Mellitus Type 1 or Diabetes Mellitus Type 2 HEMATOLOGIC: Negative Sickle Cell Disease OTHER HISTORY: Positive Falls Family History FAMILY HISTORY: Negative Family Cardiac Disorders Social History SMOKING STATUS: Current some day smoker SUBSTANCE USE: marijuana ED Exam Narrative Physical exam: [General: Mildly anxious but not in any acute distress Head normocephalic HEENT: Eyes pupils are PERRLA EOMs are intact mouth pink moist membranes uvula is midline swallow symmetrical phonation is normal. Within acceptable limits Neck is supple nontender Chest equal chest rise nontender to palpation Respiratory: Clear to auscultation no wheezes crackles or rubs CV: Rate rhythm is regular no murmurs rubs or clicks Abdomen is soft nontender no masses positive bowel sounds all 4 quadrants Back: No CVA tenderness no spinous process tenderness from cervical spine thoracic and lumbar spine Skin: Intact no petechiae rash induration ulceration or crepitus Extremities: Moving all extremity against resistance cap refill less than 2 seconds neurosensory intact Neuro: Awake alert oriented x3 Glascow coma 15 no focal deficits] Course Course Course Narrative: Reevaluation of this patient: He remains pain-free, at this time patient be discharged home I suspect this is noncardiac related chest pain of a recurrent type nature. Patient advised to follow-up with a primary care provider. Quality Measures none Orders Category Date Time Status EKG (ED ONLY) *Do not use* NOW Care 07/24/24 11:12 Completed EKG (ED Only) Stat Exams 07/24/24 11:12 Draft XR chest 2V Stat Exams 07/24/24 11:12 Taken B-Type Natriuretic Peptide Stat Lab 07/24/24 11:31 Completed CBC Stat Lab 07/24/24 11:31 Completed Comprehensive Metabolic Panel Stat Lab 07/24/24 11:31 Completed Partial Thromboplastin Time Stat Lab 07/24/24 11:31 Completed Prothrombin Time with INR Stat Lab 07/24/24 11:31 Completed Troponin I Stat Lab 07/24/24 11:31 Completed Vital Signs Vital signs: Vital Signs Temperature 98.0 F 07/24/24 11:09 Pulse Rate 67 07/24/24 11:09 Respiratory Rate 17 07/24/24 11:09 Blood Pressure 113/77 07/24/24 11:09 Pulse Oximetry (%) 97 07/24/24 11:09 Oxygen Delivery Method Room Air 07/24/24 11:09 Discharge Plan Plan Patient Disposition: HOME (Self Care) Patient condition on transfer: Stable Prescriptions/Referrals Prescriptions/Med Rec: No Action benazepril 40 mg Tablet 40 mg PO DAILY atorvastatin 20 mg Tablet 20 mg PO DAILY atenolol 100 mg Tablet 100 mg PO DAILY amlodipine 10 mg Tablet 10 mg PO DAILY phenobarbital 32.4 mg tablet 32.4 mg PO QDAY Qty: 7 0RF Rx Instructions: complete 1 week of 32.4mg bid, then take this prescription once daily for one week Referrals: Terence Eli MD [Primary Care Provider] - In 1 week Problem List Clinical Impression: Chest pain Patient/Caregiver Discharge Instructions Education Materials: ED Chest Pain, Noncardiac Additional Instructions: This, like the last visit are noncardiac related chest pains please follow-up with your primary care provider. Print Language: [place]ian Stand Alone Forms: [place] Award Info., Work/School Release, Patient Portal Info Letter PA/REHEATER HELPER Supervising Physician PA/REHEATER HELPER Supervising Physician: Braden Gautam ENP [facility] Labs Lab(s) Interpretation(s): EKG performed 1123 shows a ventricular rate of 65 [place] interval 166 QRS of 100 QTc of 405 there is normal sinus rhythm. CBC shows no acute leukocytosis anemia thrombocytopenia Coags within acceptable limits CMP shows no acute electrolyte imbalances other than a glucose of 118 no renal impairment transaminitis or T. bili elevation Troponin is negative BNP is negative Chest x-ray as interpreted by me shows no acute infiltrate effusion or other gross abnormality that needs recurrent or immediate intervention.
[2024-07-24 12:00] VITALS: BP 119/76; PULSE 65; RESP 14; TEMP 36.3; O2SAT 95
[2024-07-24 12:00] LABS: Partial Thromboplastin Time 25.4 Seconds (22.0-36.0)
[2024-07-24 12:04] LABS: B-Type Natriuretic Peptide 28 pg/mL (0-100)
[2024-07-24 12:06] LABS: Alanine Aminotransferase 13 U/L (10-49); Albumin, Serum 4.4 gm/dL (3.5-5.0); Albumin/Globulin Ratio 1.7 (1.2-2.2); Alkaline Phosphatase 65 U/L (46-116); Anion Gap 6 (7-16); Aspartate Amino Transferase 14 U/L (0-34); BUN/Creatinine Ratio 15 Ratio (12-20); Bilirubin,Total 0.9 mg/dL (0.3-1.2); Blood Urea Nitrogen 15 mg/dL (9-23); Calcium 8.5 mg/dL (8.3-10.6); Calcium (Corrected) 8.5 mg/dL (8.5-10.1); Chloride 106 mMol/L (98-107); Globulin 2.6 gm/dL (2.3-3.5); Glucose 118 mg/dL (74-106); Osmolality,Calculated 277 (275-295); Potassium 3.9 mMol/L (3.4-5.1); Sodium 138 mMol/L (136-145); Troponin I < 0.002 ng/mL (0.0-0.045); eGFR > 60 See Note
[2024-07-24 14:30] VITALS: BP 114/75; PULSE 72; RESP 18; TEMP 35.8; O2SAT 95
[2024-07-24 14:34] VITALS: BP 114/75; PULSE 72; RESP 18; TEMP 35.9; O2SAT 95
== END 2024-07-24 14:33 | disposition home or self-care (01) ==
PROVIDERS: Nurse Practitioner Family; Emergency Provider Family Medicine; PCP Internal Medicine
DX: R07.89 Other chest pain (principal); I10 Essential (primary) hypertension; E78.5 Hyperlipidemia, unspecified
CPT/HCPCS: 36415; 71046; 80053; 83880; 84484; 85025; 85610; 85730; 93005; 99283

== ENCOUNTER 2024-07-25 06:56 | Emergency (ER) | payer MEDICARE, SELFPAY ==
[2024-07-25 06:58] VITALS: BMI 25.4
--- NOTE | 2024-07-25 07:02 | EKG_ITS ---
[facility] Test Date: 2024-07-25 Pat Name: LUISA MURGUIA Department: Room: - Gender: Male Recordist: : 1970 Requested By: ED Temporary Provider Order Number: [id number] Reading MD: ED Temporary Provider Measurements Intervals [place] Rate: 63 P: 58 [place]: 171 QRS: 25 QRSD: 106 T: 5 QT: 410 QTc: 421 Interpretive Statements SINUS RHYTHM Compared to ECG 07/24/2024 11:23:26 No significant changes /store/S0/[id number]/[id number].pdf
[2024-07-25 07:16] VITALS: BP 131/78; PULSE 65; RESP 18; TEMP 36.8; O2SAT 97
--- NOTE | 2024-07-25 07:16 | XR_ITS ---
Examination: PA lateral chest 2 views TECHNIQUE: Upright PA lateral chest 2 views Date and time: July 25, 2024 0842 hours Comparison July 24, 2024 INDICATIONS: Chest pain today. FINDINGS: Normal heart size Lungs are clear. Old left-sided rib fractures IMPRESSION: No active disease
--- NOTE | 2024-07-25 07:40 | PD.EDCHEST ---
ED Chest Pain RME/HPI General Chief Complaint: Chest Pain Stated Complaint: chest pain high blood pressure Time Seen by Provider: 07/25/24 07:00 Source: patient Arrival date/time: 07/25/24 06:56 54-year-old male with a history of hyperlipidemia, hypertension presents to the emergency room with a chief complaint of 6 out of 10 sternal chest pain that radiates to his left side x 1 day Mode of arrival: ambulatory Limitations: no limitations Related Data Home Medications ?Medication ?Instructions ?Recorded ?Confirmed amlodipine 10 mg tablet 10 mg PO DAILY 05/19/21 05/19/21 atenolol 100 mg tablet 100 mg PO DAILY 05/19/21 05/19/21 atorvastatin 20 mg tablet 20 mg PO DAILY 05/19/21 05/19/21 benazepril 40 mg tablet 40 mg PO DAILY High Blood Pressure 05/19/21 05/19/21 Previous Rx's ?Medication ?Instructions ?Recorded phenobarbital 32.4 mg tablet 32.4 mg PO QDAY #7 tabs 04/18/23 Allergies Allergy/AdvReac Type Severity Reaction Status Date / Time No Known Allergies Allergy Verified 07/24/24 11:03 Review of Systems Review of Systems Systems Reviewed: All systems reviewed, normal except as documented Constitutional Constitutional: Reports system reviewed and no additional complaints, except as documented, Denies fatigue, Denies fever(s), Denies headache(s) and Denies weakness Eyes Eyes: Reports system reviewed and no additional complaints, except as documented, Denies blurry vision and Denies change in vision ENT Ears, Nose, Mouth, and Throat: Reports system reviewed and no additional complaints, except as documented, Denies otalgia, Denies headache(s), Denies nasal congestion, Denies throat swelling and Denies vertigo Cardiovascular Cardiovascular: Reports system reviewed and no additional complaints, except as documented, Reports chest pain, Reports chest pain at rest, Reports chest pain with activity, Denies dyspnea and Denies dyspnea on exertion Respiratory Respiratory: Reports system reviewed and no additional complaints, except as documented, Denies chest congestion, Denies cough, Denies dyspnea, Denies dyspnea on exertion and Denies wheezing Gastrointestinal Gastrointestinal: Reports system reviewed and no additional complaints, except as documented, Denies abdominal pain, Denies cramping, Denies nausea and Denies vomiting Genitourinary Genitourinary: Reports system reviewed and no additional complaints, except as documented, Denies dysuria and Denies hematuria Musculoskeletal Musculoskeletal: Reports system reviewed and no additional complaints, except as documented and Denies back pain Integumentary/Breasts Skin/Breast: Reports system reviewed and no additional complaints, except as documented and Denies wounds Neurologic Neurologic: Reports system reviewed and no additional complaints, except as documented, Denies confusion, Denies headache(s), Denies lack of coordination, Denies vertigo and Denies weakness Psychiatric Psychiatric: Reports system reviewed and no additional complaints, except as documented, Denies anxiety, Denies confusion, Denies depression, Denies paranoia, Denies suicidal ideation and Denies tactile hallucinations Endocrine Endocrine: Reports system reviewed and no additional complaints, except as documented and Denies fatigue Hematologic/Lymphatic Hematologic/Lymphatic: Reports system reviewed and no additional complaints, except as documented and Denies lymphadenopathy Allergic/Immunologic Allergic/Immunologic: Reports system reviewed and no additional complaints, except as documented, Denies throat swelling, Denies urticaria and Denies wheezing Past Medical History Past Medical History NEUROLOGIC: Positive Seizures CARDIAC: Positive Hypercholesterolemia and Hypertension; Negative Cardiac Disorders or Congestive Heart Failure RESPIRATORY: Negative Chronic Obstructive Pulmonary Disease (COPD) or Asthma GENITOURINARY: Negative Renal Disease MUSCULOSKELETAL: Positive Gout ENDOCRINE: Negative Diabetes Mellitus Type 1 or Diabetes Mellitus Type 2 HEMATOLOGIC: Negative Sickle Cell Disease OTHER HISTORY: Positive Falls Family History FAMILY HISTORY: Negative Family Cardiac Disorders Social History SMOKING STATUS: Current some day smoker SUBSTANCE USE: marijuana ED Exam General Limitations: Present no limitations General appearance: Present alert and in no apparent distress Head Head exam: Present atraumatic Eye Eye exam: Present normal appearance, PERRL and EOMI ENT ENT exam: Present normal exam, normal oropharynx and mucous membranes moist Neck Neck exam: Present normal inspection, full ROM and trachea midline Chest Chest inspection: Present normal inspection and symmetric chest wall rise Respiratory Respiratory exam: Present normal lung sounds bilaterally Cardiovascular Cardiovascular exam: Present regular rate, normal rhythm, normal heart sounds, +S1 and +S2; Absent bradycardia, tachycardia, irregular rhythm or systolic murmur Abdominal Exam Abdominal exam: Present soft and normal bowel sounds Extremities Exam Extremities exam: Present normal inspection and full ROM Back Exam Back exam: Present normal inspection and full ROM Neurological Exam Neurological exam: Present alert, oriented X3 and CN II-XII intact Psychiatric Psychiatric exam: Present normal affect and normal mood Skin Skin exam: Present warm, dry, intact and normal color Course Quality Measures none Orders Category Date Time Status EKG (ED ONLY) *Do not use* NOW Care 07/25/24 07:02 Completed EKG (ED Only) Stat Exams 07/25/24 07:02 Draft XR chest 2V Stat Exams 07/25/24 07:16 Completed B-Type Natriuretic Peptide Stat Lab 07/25/24 07:50 Completed CBC Stat Lab 07/25/24 07:50 Completed Comprehensive Metabolic Panel Stat Lab 07/25/24 07:50 Completed Magnesium Stat Lab 07/25/24 07:50 Completed Troponin I Stat Lab 07/25/24 07:50 Completed Vital Signs Vital signs: Vital Signs Temperature 98.2 F 07/25/24 07:16 Pulse Rate 65 07/25/24 07:16 Respiratory Rate 18 07/25/24 07:16 Blood Pressure 131/78 H 07/25/24 07:16 Pulse Oximetry (%) 97 07/25/24 07:16 Oxygen Delivery Method Room Air 07/25/24 07:16 O2 saturation 97% within normal limits Chest Pain MDM Narrative MDM Narrative:: 54-year-old male with a history of hyperlipidemia, hypertension presents to the emergency room with a chief complaint of 6 out of 10 sternal chest pain that radiates to his left side x 1 day Patient is hemodynamically stable and in no apparent distress. The patient is afebrile not tachycardic not tachypneic Physical examination shows clear bilateral lung sounds there is no wheezing there is no abnormal breath sounds. EKG shows normal sinus rhythm at [address] deviation Chest x-ray was negative for any pneumonic infiltrates. CBC CMP and troponin were both negative Patient was discharged and educated to follow-up with primary care provider in the next 24 to 48 hours and return to the emergency room for any evidence of worsening signs or symptoms Patient data External records reviewed:: [facility] previous records Clinical information provided by:: patient Social determinants that could affect healthcare access:: none Patient has the following chronic illnesses:: Hypertension and hyperlipidemia How is presenting disease/condition affected by chronic disease/condition?: exacerbated by Evaluation data The following diagnostics were reviewed and interpreted by me:: lab results and radiology exam(s) Lab and/or radiology exams considered but not ordered:: Labs and radiology exams considered and ordered Interpretation Summary: Chest x-ray-no pneumonic infiltrates Medications / Prescriptions Medications or Prescriptions considered but not ordered:: No medication given Medication administrations:: No medication given Consultations Consultation(s) initiated? (list below): No Diagnosis Chest Pain Differential Diagnosis: pneumothorax, stable angina, atypical chest pain, st elevation myocardial infarction, costochondritis and chest pain Most likely diagnosis given after review of the tests above:: Chest pain Admission Indicated Admission indicated?: not indicated Admission Request Was there a request for admission?: No Disposition Plan Disposition Plan: Discharge Discharge Attestation Discharge Attestation: The patient and all family members were given an opportunity to ask questions and understood the discharge instructions. Discharge instructions specifically effects, indications for sooner follow up or return to the emergency department, and the expected course of current diagnosis. Patient condition: Stable Discharge Plan Plan Patient Disposition: HOME (Self Care) Discharge Disposition comment: Stable Prescriptions/Referrals Prescriptions/Med Rec: No Action benazepril 40 mg Tablet 40 mg PO DAILY atorvastatin 20 mg Tablet 20 mg PO DAILY atenolol 100 mg Tablet 100 mg PO DAILY amlodipine 10 mg Tablet 10 mg PO DAILY phenobarbital 32.4 mg tablet 32.4 mg PO QDAY Qty: 7 0RF Rx Instructions: complete 1 week of 32.4mg bid, then take this prescription once daily for one week Referrals: Terence Eli MD [Primary Care Provider] - In 1 week Problem List Clinical Impression: Chest pain Patient/Caregiver Discharge Instructions Education Materials: ED Chest Pain, Noncardiac Additional Instructions: Please follow-up with your primary care provider in the next 24 to 48 hours. Your cardiac examination was negative for any acute findings. Your EKG was within normal limits and your blood work was within normal limits. Please follow-up with your primary care provider if your signs and symptoms continue as a referral to a drilling field operator is indicated for further management For any evidence of worsening signs or symptoms return to the emergency room immediately Print Language: Malay Stand Alone Forms: Donna Award Info., Patient Portal Info Letter MARICRUZ/TIM Supervising Physician MARICRUZ/TIM Supervising Physician: Dr. Prescott
[2024-07-25 08:20] LABS: Basophils % (Auto) 1 % (0-2.5); Eosinophils # (Auto) 0.1 Thou/mm3 (0.0-0.5); Eosinophils % (Auto) 1 % (0-10); Hematocrit 41.3 % (41.0-53.0); Hemoglobin 14.2 g/dL (13.5-16.0); Immature Granulocytes % (Auto) 0 % (0-0); Immature Granulocytes Auto 0.01 Thou/mm3 (0.00-0.00); Lymphocytes # (Auto) 1.2 Thou/mm3 (1.0-4.8); Lymphocytes % (Auto) 20 % (10-50); Mean Corpuscular HGB Conc 34.4 g/dl (31.0-37.0); Mean Corpuscular Hemoglobin 29.1 pg (25.0-35.0); Mean Corpuscular Volume 85 fL (80-100); Monocytes # (Auto) 0.5 Thou/mm3 (0.0-0.8); Monocytes % (Auto) 9 % (0-12); Neutrophils # (Auto) 4.1 Thou/mm3 (1.8-7.7); Neutrophils % (Auto) 70 % (37-80); Nucleated Red Blood Cell % 0 /100 WBC (0); Platelet Count 255 Thou/mm3 (140-440); RDW Standard Deviation 42.9 fL (35.1-43.9); Red Blood Count 4.88 Miln/mm3 (4.50-5.90); White Blood Count 5.8 Thou/mm3 (3.8-10.6)
[2024-07-25 08:36] LABS: B-Type Natriuretic Peptide < 20 pg/mL (0-100)
[2024-07-25 08:39] LABS: Alanine Aminotransferase 15 U/L (10-49); Albumin, Serum 4.5 gm/dL (3.5-5.0); Albumin/Globulin Ratio 1.7 (1.2-2.2); Alkaline Phosphatase 74 U/L (46-116); Anion Gap 6 (7-16); Aspartate Amino Transferase 16 U/L (0-34); BUN/Creatinine Ratio 16 Ratio (12-20); Bilirubin,Total 0.5 mg/dL (0.3-1.2); Blood Urea Nitrogen 16 mg/dL (9-23); Calcium 8.4 mg/dL (8.3-10.6); Calcium (Corrected) 8.4 mg/dL (8.5-10.1); Chloride 105 mMol/L (98-107); Estimated Creatinine Clearance 93.8 mL/min (>60); Globulin 2.6 gm/dL (2.3-3.5); Glucose 141 mg/dL (74-106); Osmolality,Calculated 278 (275-295); Potassium 3.7 mMol/L (3.4-5.1); Sodium 138 mMol/L (136-145); Total Protein 7.1 gm/dL (5.7-8.2); Troponin I < 0.002 ng/mL (0.0-0.045); eGFR > 60 See Note
--- NOTE | 2024-07-25 09:17 | PC.NURSE ---
Attempted to d/c patient, No answer [phone]
--- NOTE | 2024-07-25 09:25 | PC.NURSE ---
NO ANSWER IN [facility] X2
--- NOTE | 2024-07-25 09:40 | PC.NURSE ---
NO ANSER IN [facility] X3, PT ELOPED PRIOR TO RECEIVING D/C INSTRUCTIONS
== END 2024-07-25 09:40 | disposition home or self-care (01) ==
PROVIDERS: Nurse Practitioner Family; Emergency Provider Family Medicine; PCP Internal Medicine
DX: R07.2 Precordial pain (principal); I10 Essential (primary) hypertension; E78.5 Hyperlipidemia, unspecified
CPT/HCPCS: 36415; 71046; 80053; 83735; 83880; 84484; 85025; 93005; 99283

== ENCOUNTER 2024-07-28 09:49 | Emergency (ER) | payer MEDICARE, SELFPAY ==
[2024-07-28 09:50] VITALS: BMI 25.0
[2024-07-28 10:08] VITALS: BP 125/86; PULSE 66; RESP 20; TEMP 36.6; O2SAT 97
--- NOTE | 2024-07-28 10:21 | EDRME_ITS ---
Rapid Medical Screening Exam [facility] Arrival date/time: 07/28/24 09:49 54-year-old male with a history of hyperlipidemia, hypertension, presents to the emergency room with a chief complaint of 6 out of 10 sternal chest pain that began after taking his medication. Patient states he has been here multiple times and develops chest pain after his medication. Patient has tried to see his primary care provider but states he is on vacation. I have greeted and performed a focused initial assessment of this patient. A comprehensive ED assessment and evaluation of the patient, analysis of all test results, and completion of the medical decision making process will be conducted by additional ED providers. Chief Complaint: Abdominal Pain Time Seen by Provider: 07/28/24 10:06 Vital signs: Vital Signs Temperature 97.9 F 07/28/24 10:08 Pulse Rate 66 07/28/24 10:08 Respiratory Rate 20 07/28/24 10:08 Blood Pressure 125/86 H 07/28/24 10:08 Pulse Oximetry (%) 97 07/28/24 10:08 Oxygen Delivery Method Room Air 07/28/24 10:08 Vital signs reviewed by provider: Yes
--- NOTE | 2024-07-28 10:21 | EKG_ITS ---
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
[2024-07-28 10:53] LABS: Basophils % (Auto) 1 % (0-2.5); Eosinophils # (Auto) 0.1 Thou/mm3 (0.0-0.5); Eosinophils % (Auto) 2 % (0-10); Hematocrit 41.9 % (41.0-53.0); Hemoglobin 14.3 g/dL (13.5-16.0); Immature Granulocytes % (Auto) 0 % (0-0); Immature Granulocytes Auto 0.02 Thou/mm3 (0.00-0.00); Lymphocytes # (Auto) 1.4 Thou/mm3 (1.0-4.8); Lymphocytes % (Auto) 22 % (10-50); Mean Corpuscular HGB Conc 34.1 g/dl (31.0-37.0); Mean Corpuscular Hemoglobin 29.6 pg (25.0-35.0); Mean Corpuscular Volume 87 fL (80-100); Monocytes # (Auto) 0.5 Thou/mm3 (0.0-0.8); Monocytes % (Auto) 9 % (0-12); Neutrophils # (Auto) 4.2 Thou/mm3 (1.8-7.7); Neutrophils % (Auto) 67 % (37-80); Nucleated Red Blood Cell % 0 /100 WBC (0); Platelet Count 247 Thou/mm3 (140-440); RDW Standard Deviation 44.1 fL (35.1-43.9); Red Blood Count 4.83 Miln/mm3 (4.50-5.90); White Blood Count 6.2 Thou/mm3 (3.8-10.6)
[2024-07-28 11:09] LABS: B-Type Natriuretic Peptide 53 pg/mL (0-100)
[2024-07-28 11:13] LABS: Alanine Aminotransferase 13 U/L (10-49); Albumin, Serum 4.5 gm/dL (3.5-5.0); Albumin/Globulin Ratio 1.7 (1.2-2.2); Alkaline Phosphatase 68 U/L (46-116); Anion Gap 10 (7-16); Aspartate Amino Transferase 16 U/L (0-34); BUN/Creatinine Ratio 10 Ratio (12-20); Blood Urea Nitrogen 10 mg/dL (9-23); Calcium 8.7 mg/dL (8.3-10.6); Calcium (Corrected) 8.7 mg/dL (8.5-10.1); Carbon Dioxide 26.9 mMol/L (20.0-31.0); Chloride 103 mMol/L (98-107); Estimated Creatinine Clearance 96.5 mL/min (>60); Globulin 2.6 gm/dL (2.3-3.5); Glucose 125 mg/dL (74-106); Osmolality,Calculated 279 (275-295); Potassium 4.2 mMol/L (3.4-5.1); Sodium 140 mMol/L (136-145); Total Protein 7.1 gm/dL (5.7-8.2); Troponin I < 0.002 ng/mL (0.0-0.045); eGFR > 60 See Note
--- NOTE | 2024-07-28 11:28 | PD.EDADULT ---
ED General RME/HPI General Chief complaint: Abdominal Pain Stated complaint: MID CHEST PAIN AFTER TAKING MEDS THIS AM Time Seen by Provider: 07/28/24 10:06 Arrival date/time: 07/28/24 09:49 RME / HPI RME / HPI narrative: 54-year-old male with a history of hyperlipidemia, hypertension, presents to the emergency room with a chief complaint of 6 out of 10 sternal chest pain that began after taking his medication. Patient states he has been here multiple times and develops chest pain after his medication. Patient has tried to see his primary care provider but states he is on vacation. Denies any cough denies any other complaints no medications taken prior to ER visit. Related Data Home Medications ?Medication ?Instructions ?Recorded ?Confirmed amlodipine 10 mg tablet 10 mg PO DAILY 05/19/21 05/19/21 atenolol 100 mg tablet 100 mg PO DAILY 05/19/21 05/19/21 atorvastatin 20 mg tablet 20 mg PO DAILY 05/19/21 05/19/21 benazepril 40 mg tablet 40 mg PO DAILY High Blood Pressure 05/19/21 05/19/21 Previous Rx's ?Medication ?Instructions ?Recorded phenobarbital 32.4 mg tablet 32.4 mg PO QDAY #7 tabs 04/18/23 pantoprazole 40 mg tablet,delayed 40 mg PO QDAY #20 tabs 07/28/24 release (Protonix) Allergies Allergy/AdvReac Type Severity Reaction Status Date / Time No Known Allergies Allergy Verified 07/28/24 09:52 Review of Systems Review of Systems Narrative Review of Systems: Review of system reviewed and within normal limits except mentioned in HPI ED Exam Narrative Physical exam: VITAL SIGNS: Reviewed. GENERAL APPEARANCE: Alert and interactive, follows commands, no acute distress, HEAD AND FACE: Non-traumatic. ENT: PERRL, pink conjunctivitis, eyelid no trauma, Mucous membrane moist. NECK: Supple, nontender, no nuchal rigidity. CHEST: No tenderness, no crepitus, no paradoxical movement, no retractions. LUNGS: Clear, well ventilated, symmetric, no rales, no wheezing, no ronchi, no stridor, good breath sounds bilaterally. HEART: Regular rate, regular rhythm, no murmur, no gallops. ABDOMEN: Soft, positive bowel sounds, nondistended, no guarding, nontender, no rebound, no masses, RECTAL: Deferred. GENITAL: Deferred. NEUROLOGICAL: Gross motor function intact sensory function intact, Appropriate for age. MUSCULOSKELETAL: low back nontender, full range of motion. EXTREMITIES: Nontender, full range of motion. SKIN: Color pink, dry, no rash, no lacerations, no abrasions, no contusions. LYMPHATICS: Deferred. Course Quality Measures none Orders Category Date Time Status EKG (ED ONLY) *Do not use* NOW Care 07/28/24 10:21 Completed EKG (ED Only) Stat Exams 07/28/24 10:21 Draft B-Type Natriuretic Peptide Stat Lab 07/28/24 10:26 Completed CBC Stat Lab 07/28/24 10:26 Completed Comprehensive Metabolic Panel Stat Lab 07/28/24 10:26 Completed Troponin I Stat Lab 07/28/24 10:26 Completed Vital Signs Vital signs: Vital Signs Temperature 97.9 F 07/28/24 10:08 Pulse Rate 66 07/28/24 10:08 Respiratory Rate 20 07/28/24 10:08 Blood Pressure 125/86 H 07/28/24 10:08 Pulse Oximetry (%) 97 07/28/24 10:08 Oxygen Delivery Method Room Air 07/28/24 10:08 Discharge Plan Plan Patient Disposition: HOME (Self Care) Discharge Disposition comment: stable Prescriptions/Referrals Prescriptions/Med Rec: New pantoprazole [Protonix] 40 mg tablet,delayed release (DR/EC) 40 mg PO QDAY Qty: 20 0RF No Action benazepril 40 mg Tablet 40 mg PO DAILY atorvastatin 20 mg Tablet 20 mg PO DAILY atenolol 100 mg Tablet 100 mg PO DAILY amlodipine 10 mg Tablet 10 mg PO DAILY phenobarbital 32.4 mg tablet 32.4 mg PO QDAY Qty: 7 0RF Rx Instructions: complete 1 week of 32.4mg bid, then take this prescription once daily for one week Referrals: Terence Eli MD [Primary Care Provider] - In 1 week Problem List Clinical Impression: GERD (gastroesophageal reflux disease), Adverse effects of medication Patient/Caregiver Discharge Instructions Discharge Activity: activity as tolerated Education Materials: ED GERD (Adult) Additional Instructions: Thank you for the opportunity for serving you today. You are stable for discharged . You are advised to: Follow-up with your PCP in 1 to 2 days Return to ED for worsening of symptoms Increase oral fluids Take medication as prescribed Print Language: Cameroonian Stand Alone Forms: Donna Award Info., Patient Portal Info Letter MARICRUZ/TIM Supervising Physician UTE Supervising Physician: Md Alyssa MDM Narrative MDM hospital course (for use when minimal MDM required): 54 old male with a history of hyperlipidemia, hypertension, presents to the emergency room with a chief complaint of 6 out of 10 sternal chest pain that began after taking his medication. Patient states he has been here multiple times and develops chest pain after his medication. Patient has tried to see his primary care provider but states he is on vacation. Denies any cough denies any other complaints no medications taken prior to ER visit. Laboratory workup all came back unremarkable. EKG showed normal sinus rhythm, ventricular rate of 66 bpm, no ST segment elevation or depression noted. Prior to discharge patient told me that h is substernal chest pain is totally gone. Probably having GERD. Was advised to take medication with food. Medical Records reviewed None Meds/Rx considered, not ordered None Labs/Rad/Tests considered, not ordered None Chronic Illness/Social Conditions which may negatively complicate care or outcome(s)-explain: other Medication Administration(s) None Diagnosis Differential Diagnosis ED Complaint MDM: Epigastric pain, chest pain, GERD causing chest pain adverse effect of Diagnoses ruled out and/or further discussions: GERD causing chest pain, adverse effect of medications
== END 2024-07-28 11:36 | disposition home or self-care (01) ==
PROVIDERS: Nurse Practitioner Family; Emergency Provider Emergency Medicine; PCP Internal Medicine
DX: K21.9 Gastro-esophageal reflux disease without esophagitis (principal); R07.2 Precordial pain; T50.905A Adverse effect of unspecified drugs, medicaments and biological substances, initial encounter; I10 Essential (primary) hypertension; E78.5 Hyperlipidemia, unspecified
CPT/HCPCS: 36415; 80053; 83880; 84484; 85025; 93005; 99283

== ENCOUNTER 2024-08-02 08:15 | Emergency (ER) | payer MEDICARE, SELFPAY ==
--- NOTE | 2024-08-02 08:19 | EKG_ITS ---
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
[2024-08-02 08:31] VITALS: BP 113/75; PULSE 64; RESP 18; TEMP 37; O2SAT 96; BMI 24.4
--- NOTE | 2024-08-02 08:39 | XR_ITS ---
Examination: PA lateral chest 2 views TECHNIQUE: Upright PA lateral chest 2 views Date and time: August 02, 2024 0959 hours INDICATIONS: Chest pain today. FINDINGS: Normal heart size. Lungs are clear. Bilateral old rib fractures IMPRESSION: No active disease
--- NOTE | 2024-08-02 08:39 | XR_ITS ---
Examination: CT brain head without contrast. 2-D sagittal coronal reconstructions Date and time of exam:August 02, 2024 0851 hours Comparison May 11, 2024 INDICATIONS: Generalized head pain today CTDI: vol (mGy):49.6 DLP: (mGycm):992 Technique: Multiple CT axial sections of the brain have been obtained, 5 mm slice thickness. Contrast has not been administered. 2-D sagittal, coronal reconstructions have been obtained Low dose protocols were performed. One or more of the following dose reduction techniques were used; automated exposure control, adjustment of the mA and/or KV according to patient size, use of iterative reconstruction technique. Findings: No significant ventricular enlargement. Intra-axial or extra-axial hemorrhage density is not seen. No mass effect or midline shift Basal cisterns are not remarkable. Fourth ventricle is midline. Cranial vault intact. Bilateral scalp probable sebaceous cyst Impression: Negative for acute hemorrhage, mass effect or midline shift Suggest follow-up as clinically warranted
[2024-08-02 09:45] LABS: Basophils % (Auto) 1 % (0-2.5); Eosinophils # (Auto) 0.1 Thou/mm3 (0.0-0.5); Eosinophils % (Auto) 1 % (0-10); Hematocrit 42.4 % (41.0-53.0); Hemoglobin 14.7 g/dL (13.5-16.0); Immature Granulocytes % (Auto) 0 % (0-0); Immature Granulocytes Auto 0.02 Thou/mm3 (0.00-0.00); Lymphocytes # (Auto) 1.5 Thou/mm3 (1.0-4.8); Lymphocytes % (Auto) 21 % (10-50); Mean Corpuscular HGB Conc 34.7 g/dl (31.0-37.0); Mean Corpuscular Hemoglobin 29.6 pg (25.0-35.0); Mean Corpuscular Volume 86 fL (80-100); Monocytes # (Auto) 0.6 Thou/mm3 (0.0-0.8); Monocytes % (Auto) 9 % (0-12); Neutrophils % (Auto) 69 % (37-80); Nucleated Red Blood Cell % 0 /100 WBC (0); Platelet Count 276 Thou/mm3 (140-440); RDW Standard Deviation 42.3 fL (35.1-43.9); Red Blood Count 4.96 Miln/mm3 (4.50-5.90); White Blood Count 7.3 Thou/mm3 (3.8-10.6)
[2024-08-02 10:07] LABS: Alanine Aminotransferase 15 U/L (10-49); Albumin, Serum 4.8 gm/dL (3.5-5.0); Albumin/Globulin Ratio 1.8 (1.2-2.2); Alkaline Phosphatase 70 U/L (46-116); Anion Gap 8 (7-16); Aspartate Amino Transferase 18 U/L (0-34); BUN/Creatinine Ratio 13 Ratio (12-20); Bilirubin,Total 1.2 mg/dL (0.3-1.2); Blood Urea Nitrogen 14 mg/dL (9-23); Calcium 8.6 mg/dL (8.3-10.6); Calcium (Corrected) 8.6 mg/dL (8.5-10.1); Carbon Dioxide 27.5 mMol/L (20.0-31.0); Chloride 101 mMol/L (98-107); Creatinine (Component) 1.1 mg/dL (0.6-1.3); Estimated Creatinine Clearance 87.8 mL/min (>60); Globulin 2.6 gm/dL (2.3-3.5); Glucose 123 mg/dL (74-106); Osmolality,Calculated 273 (275-295); Potassium 3.6 mMol/L (3.4-5.1); Sodium 136 mMol/L (136-145); Total Protein 7.4 gm/dL (5.7-8.2); Troponin I < 0.002 ng/mL (0.0-0.045); eGFR > 60 See Note
--- NOTE | 2024-08-02 10:54 | PD.EDADULT ---
ED General RME/HPI General Chief complaint: Chest Pain Stated complaint: chest, head pain since 0500 this am Time Seen by Provider: 08/02/24 08:17 Arrival date/time: 08/02/24 08:15 54-year-old male with history of hypertension hypercholesterolemia as well as prior alcohol use presents with complaints of headache and chest pain patient has had multiple visits for the same Limitations: no limitations Related Data Home Medications ?Medication ?Instructions ?Recorded ?Confirmed amlodipine 10 mg tablet 10 mg PO DAILY 05/19/21 05/19/21 atenolol 100 mg tablet 100 mg PO DAILY 05/19/21 05/19/21 atorvastatin 20 mg tablet 20 mg PO DAILY 05/19/21 05/19/21 benazepril 40 mg tablet 40 mg PO DAILY High Blood Pressure 05/19/21 05/19/21 Previous Rx's ?Medication ?Instructions ?Recorded phenobarbital 32.4 mg tablet 32.4 mg PO QDAY #7 tabs 04/18/23 pantoprazole 40 mg tablet,delayed 40 mg PO QDAY #20 tabs 07/28/24 release (Protonix) Allergies Allergy/AdvReac Type Severity Reaction Status Date / Time No Known Allergies Allergy Verified 08/02/24 08:20 Review of Systems Review of Systems Systems Reviewed: All systems reviewed, normal except as documented Constitutional Constitutional: Reports system reviewed and no additional complaints, except as documented, Denies fever(s) and Reports headache(s) Eyes Eyes: Reports system reviewed and no additional complaints, except as documented and Denies blurry vision ENT Ears, Nose, Mouth, and Throat: Reports system reviewed and no additional complaints, except as documented, Reports headache(s), Denies nasal congestion and Denies nasal discharge Cardiovascular Cardiovascular: Reports system reviewed and no additional complaints, except as documented, Reports chest pain and Denies dyspnea Respiratory Respiratory: Reports system reviewed and no additional complaints, except as documented, Denies chest congestion, Denies cough and Denies dyspnea Gastrointestinal Gastrointestinal: Reports system reviewed and no additional complaints, except as documented and Denies abdominal pain Integumentary/Breasts Skin/Breast: Reports system reviewed and no additional complaints, except as documented and Denies rash Neurologic Neurologic: Reports system reviewed and no additional complaints, except as documented, Reports as per HPI and Reports headache(s) Past Medical History Past Medical History NEUROLOGIC: Positive Seizures CARDIAC: Positive Hypercholesterolemia and Hypertension; Negative Cardiac Disorders or Congestive Heart Failure RESPIRATORY: Negative Chronic Obstructive Pulmonary Disease (COPD) or Asthma GENITOURINARY: Negative Renal Disease MUSCULOSKELETAL: Positive Gout ENDOCRINE: Negative Diabetes Mellitus Type 1 or Diabetes Mellitus Type 2 HEMATOLOGIC: Negative Sickle Cell Disease OTHER HISTORY: Positive Falls Family History FAMILY HISTORY: Negative Family Cardiac Disorders Social History SMOKING STATUS: Never smoker SUBSTANCE USE: marijuana ED Exam General Limitations: Present no limitations General appearance: Present alert and in no apparent distress Head Head exam: Present atraumatic Eye Eye exam: Present normal appearance, PERRL and EOMI; Absent conjunctival injection ENT ENT exam: Present normal exam, normal oropharynx and mucous membranes moist Neck Neck exam: Present normal inspection, full ROM and trachea midline Chest Chest inspection: Present normal inspection and symmetric chest wall rise Respiratory Respiratory exam: Present normal lung sounds bilaterally Cardiovascular Cardiovascular exam: Present regular rate, normal rhythm and normal heart sounds Abdominal Exam Abdominal exam: Present soft and normal bowel sounds Extremities Exam Extremities exam: Present normal inspection and full ROM Back Exam Back exam: Present normal inspection and full ROM Neurological Exam Neurological exam: Present alert, oriented X3, CN II-XII intact, normal gait and reflexes normal; Absent motor sensory deficit Psychiatric Psychiatric exam: Present anxious Skin Skin exam: Present warm, dry, intact and normal color Course Quality Measures none Orders Category Date Time Status EKG (ED ONLY) *Do not use* NOW Care 08/02/24 08:[address] head/brain wo con Stat Exams 08/02/24 08:39 Completed EKG (ED Only) Stat Exams 08/02/24 08:19 Draft XR chest 2V Stat Exams 08/02/24 08:39 Completed CBC Stat Lab 08/02/24 09:11 Completed Comprehensive Metabolic Panel Stat Lab 08/02/24 09:11 Completed Troponin I Stat Lab 08/02/24 09:11 Completed Vital Signs Vital signs: Vital Signs Temperature 98.6 F 08/02/24 08:31 Pulse Rate 64 08/02/24 08:31 Respiratory Rate 18 08/02/24 08:31 Blood Pressure 113/75 08/02/24 08:31 Pulse Oximetry (%) 96 08/02/24 08:31 Oxygen Delivery Method Room Air 08/02/24 08:31 O2 saturation 96% on room air within normal limits Procedures -ED EKG Interpretation #1: Date of EK08/02/24 Time of EK:29 Rate: 68 Interpretation: Interpreted by me EKG Impression: Normal sinus rhythm, No acute ST-T changes, No ectopy, No ischemic changes, Normal QRS, Normal intervals and Normal axis Discharge Plan Plan Patient Disposition: HOME (Self Care) Discharge Disposition comment: Stable Prescriptions/Referrals Prescriptions/Med Rec: No Action benazepril 40 mg Tablet 40 mg PO DAILY atorvastatin 20 mg Tablet 20 mg PO DAILY atenolol 100 mg Tablet 100 mg PO DAILY amlodipine 10 mg Tablet 10 mg PO DAILY phenobarbital 32.4 mg tablet 32.4 mg PO QDAY Qty: 7 0RF Rx Instructions: complete 1 week of 32.4mg bid, then take this prescription once daily for one week pantoprazole [Protonix] 40 mg tablet,delayed release (DR/EC) 40 mg PO QDAY Qty: 20 0RF Referrals: Terence Eli MD [Primary Care Provider] - 08/03/24 Problem List Clinical Impression: Headache, Chest pain Patient/Caregiver Discharge Instructions Education Materials: Measuring Your Pain Additional Instructions: Please follow up with your primary care doctor in the next 24-48hrs for any worsening symptoms return here immediately Print Language: Slovenian Stand Alone Forms: Pianpian Info., Patient Portal Info Letter PA/LOCKER ROOM MANAGER Supervising Physician PA/LOCKER ROOM MANAGER Supervising Physician: Dr galeas MDM Narrative MDM hospital course (for use when minimal MDM required): 54-year-old male with history of hypertension hypercholesterolemia as well as prior alcohol use presents with complaints of headache and chest pain patient has had multiple visits for the same Lab work, imaging, EKG obtained no acute emergent findings noted Patient walks with steady gait has no abnormal neurological findings Patient discharged home in no distress to follow-up with primary care doctor in the next 24 to 48 hours and for any worsening symptoms to return to the ER immediately Clinical Information Provided by: patient Medical Records reviewed [facility] Meds/Rx considered, not ordered None Labs/Rad/Tests considered, not ordered Describe: Obtained Chronic Illness/Social Conditions which may negatively complicate care or outcome(s)-explain: None or not applicable Labs Labs: interpreted by me Imaging Imaging Interpretation(s): Reviewed by me Medication Administration(s) none Diagnosis Differential Diagnosis ED Complaint MDM: Anxiety, stress reaction, hypertension, headache, closed head injury Diagnoses ruled out and/or further discussions: Stress reaction, anxiety, headache, chest pain
== END 2024-08-02 11:37 | disposition home or self-care (01) ==
PROVIDERS: Nurse Practitioner Primary Care; Emergency Provider Emergency Medicine; PCP Internal Medicine
DX: R07.9 Chest pain, unspecified (principal); R51.9 Headache, unspecified; E78.00 Pure hypercholesterolemia, unspecified; I10 Essential (primary) hypertension
CPT/HCPCS: 36415; 70450; 71046; 80053; 84484; 85025; 93005; 99284

== ENCOUNTER 2024-08-04 06:38 | Emergency (ER) | payer OTHER, SELFPAY ==
[2024-08-04 06:38] VITALS: BMI 25.2
--- NOTE | 2024-08-04 06:45 | EKG_ITS ---
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
--- NOTE | 2024-08-04 07:06 | PD.EDCHEST ---
ED Chest Pain RME/HPI General Chief Complaint: Chest Pain Stated Complaint: CHEST PAIN, H/A Time Seen by Provider: 08/04/24 06:44 Source: patient Arrival date/time: 08/04/24 06:38 54-year-old male with a history of hypertension and hyperlipidemia presents to the emergency room with a chief complaint of chest pain and a headache after taking his morning medication. Mode of arrival: ambulatory Limitations: no limitations Related Data Home Medications ?Medication ?Instructions ?Recorded ?Confirmed amlodipine 10 mg tablet 10 mg PO DAILY 05/19/21 05/19/21 atenolol 100 mg tablet 100 mg PO DAILY 05/19/21 05/19/21 atorvastatin 20 mg tablet 20 mg PO DAILY 05/19/21 05/19/21 benazepril 40 mg tablet 40 mg PO DAILY High Blood Pressure 05/19/21 05/19/21 Previous Rx's ?Medication ?Instructions ?Recorded phenobarbital 32.4 mg tablet 32.4 mg PO QDAY #7 tabs 04/18/23 pantoprazole 40 mg tablet,delayed 40 mg PO QDAY #20 tabs 07/28/24 release (Protonix) Allergies Allergy/AdvReac Type Severity Reaction Status Date / Time No Known Allergies Allergy Verified 08/02/24 08:20 Review of Systems Review of Systems Systems Reviewed: All systems reviewed, normal except as documented Constitutional Constitutional: Reports system reviewed and no additional complaints, except as documented, Denies fatigue, Denies fever(s), Denies headache(s) and Denies weakness Eyes Eyes: Reports system reviewed and no additional complaints, except as documented, Denies blurry vision and Denies change in vision ENT Ears, Nose, Mouth, and Throat: Reports system reviewed and no additional complaints, except as documented, Denies otalgia, Denies headache(s), Denies nasal congestion, Denies throat swelling and Denies vertigo Cardiovascular Cardiovascular: Reports system reviewed and no additional complaints, except as documented, Denies chest pain, Denies dyspnea and Denies dyspnea on exertion Respiratory Respiratory: Reports system reviewed and no additional complaints, except as documented, Denies chest congestion, Denies cough, Denies dyspnea, Denies dyspnea on exertion and Denies wheezing Gastrointestinal Gastrointestinal: Reports system reviewed and no additional complaints, except as documented, Denies abdominal pain, Denies cramping, Denies nausea and Denies vomiting Genitourinary Genitourinary: Reports system reviewed and no additional complaints, except as documented, Denies dysuria and Denies hematuria Musculoskeletal Musculoskeletal: Reports system reviewed and no additional complaints, except as documented and Denies back pain Integumentary/Breasts Skin/Breast: Reports system reviewed and no additional complaints, except as documented and Denies wounds Neurologic Neurologic: Reports system reviewed and no additional complaints, except as documented, Denies confusion, Denies headache(s), Denies lack of coordination, Denies vertigo and Denies weakness Psychiatric Psychiatric: Reports system reviewed and no additional complaints, except as documented, Denies anxiety, Denies confusion, Denies depression, Denies paranoia, Denies suicidal ideation and Denies tactile hallucinations Endocrine Endocrine: Reports system reviewed and no additional complaints, except as documented and Denies fatigue Hematologic/Lymphatic Hematologic/Lymphatic: Reports system reviewed and no additional complaints, except as documented and Denies lymphadenopathy Allergic/Immunologic Allergic/Immunologic: Reports system reviewed and no additional complaints, except as documented, Denies throat swelling, Denies urticaria and Denies wheezing Past Medical History Past Medical History NEUROLOGIC: Positive Seizures CARDIAC: Positive Hypercholesterolemia and Hypertension; Negative Cardiac Disorders or Congestive Heart Failure RESPIRATORY: Negative Chronic Obstructive Pulmonary Disease (COPD) or Asthma GENITOURINARY: Negative Renal Disease MUSCULOSKELETAL: Positive Gout ENDOCRINE: Negative Diabetes Mellitus Type 1 or Diabetes Mellitus Type 2 HEMATOLOGIC: Negative Sickle Cell Disease OTHER HISTORY: Positive Falls Family History FAMILY HISTORY: Negative Family Cardiac Disorders Social History SMOKING STATUS: Never smoker SUBSTANCE USE: marijuana ED Exam General Limitations: Present no limitations General appearance: Present alert and in no apparent distress Head Head exam: Present atraumatic Eye Eye exam: Present normal appearance, PERRL and EOMI ENT ENT exam: Present normal exam, normal oropharynx and mucous membranes moist Neck Neck exam: Present normal inspection, full ROM and trachea midline Chest Chest inspection: Present normal inspection and symmetric chest wall rise Respiratory Respiratory exam: Present normal lung sounds bilaterally; Absent respiratory distress, wheezes, stridor, accessory muscle use or prolonged expiratory phase Cardiovascular Cardiovascular exam: Present regular rate, normal rhythm, normal heart sounds, +S1 and +S2; Absent bradycardia, tachycardia or irregular rhythm Abdominal Exam Abdominal exam: Present soft and normal bowel sounds Extremities Exam Extremities exam: Present normal inspection and full ROM Back Exam Back exam: Present normal inspection and full ROM Neurological Exam Neurological exam: Present alert, oriented X3 and CN II-XII intact Psychiatric Psychiatric exam: Present normal affect and normal mood Skin Skin exam: Present warm, dry, intact and normal color Course Quality Measures none Orders Category Date Time Status EKG (ED ONLY) *Do not use* NOW Care 08/04/24 06:45 Completed EKG (ED Only) Stat Exams 08/04/24 06:45 Draft B-Type Natriuretic Peptide Stat Lab 08/04/24 07:45 Completed CBC Stat Lab 08/04/24 07:45 Completed Comprehensive Metabolic Panel Stat Lab 08/04/24 07:45 Completed Magnesium Stat Lab 08/04/24 07:45 Completed Troponin I Stat Lab 08/04/24 07:45 Completed Vital Signs Vital signs: Vital Signs Temperature 98.3 F 08/04/24 07:09 Pulse Rate 62 08/04/24 07:09 Respiratory Rate 16 08/04/24 07:09 Blood Pressure 121/79 08/04/24 07:09 Pulse Oximetry (%) 98 08/04/24 07:09 Oxygen Delivery Method Room Air 08/04/24 07:09 O2 saturation 98% within normal limits Procedures -ED EKG Interpretation #1: Date of EK08/04/24 Rate: 65 Interpretation: Reviewed by me EKG Impression: Normal sinus rhythm Chest Pain MDM Narrative MDM Narrative:: 54-year-old male with a history of hypertension and hyperlipidemia presents to the emergency room with a chief complaint of chest pain and a headache after taking his morning medication. Patient is hemodynamically stable and in no apparent distress Physical examination shows strong regular rhythm S1 and S2 noted no murmurs EKG was completed and shows normal sinus rhythm at 65 bpm CBC CMP troponin and BNP were all negative Patient was discharged and educated to follow-up with primary care provider in the next 24 to 48 hours and return to the emergency room for any evidence of worsening signs or symptoms Patient data External records reviewed:: [facility] previous records Clinical information provided by:: patient Social determinants that could affect healthcare access:: none Patient has the following chronic illnesses:: No chronic illness How is presenting disease/condition affected by chronic disease/condition?: no chronic disease Evaluation data The following diagnostics were reviewed and interpreted by me:: lab results and radiology exam(s) Lab and/or radiology exams considered but not ordered:: Labs and radiology exams considered and ordered Interpretation Summary: N/A Medications / Prescriptions Medications or Prescriptions considered but not ordered:: Medication not given Medication administrations:: Medication not given Consultations Consultation(s) initiated? (list below): No Diagnosis Chest Pain Differential Diagnosis: atypical chest pain, st elevation myocardial infarction, costochondritis and chest pain Most likely diagnosis given after review of the tests above:: Chest pain Admission Indicated Admission indicated?: not indicated Admission Request Was there a request for admission?: No Disposition Plan Disposition Plan: Discharge Discharge Attestation Discharge Attestation: The patient and all family members were given an opportunity to ask questions and understood the discharge instructions. Discharge instructions specifically effects, indications for sooner follow up or return to the emergency department, and the expected course of current diagnosis. Patient condition: Stable Discharge Plan Plan Patient Disposition: HOME (Self Care) Discharge Disposition comment: Stable Prescriptions/Referrals Prescriptions/Med Rec: No Action benazepril 40 mg Tablet 40 mg PO DAILY atorvastatin 20 mg Tablet 20 mg PO DAILY atenolol 100 mg Tablet 100 mg PO DAILY amlodipine 10 mg Tablet 10 mg PO DAILY phenobarbital 32.4 mg tablet 32.4 mg PO QDAY Qty: 7 0RF Rx Instructions: complete 1 week of 32.4mg bid, then take this prescription once daily for one week pantoprazole [Protonix] 40 mg tablet,delayed release (DR/EC) 40 mg PO QDAY Qty: 20 0RF Referrals: Nitza Eli MD [Primary Care Provider] - In 1 week Problem List Clinical Impression: Chest pain Patient/Caregiver Discharge Instructions Education Materials: ED Chest Pain, Noncardiac Additional Instructions: Please follow-up with your primary care provider in the next 24 to 48 hours If your symptoms began after taking your medication please follow-up with your primary care provider to switch you to a different blood pressure medication. For any evidence of worsening signs or symptoms return to the emergency room immediately Print Language: Gambian Stand Alone Forms: Donna Award Info., Patient Portal Info Letter PA/GATE CLERK Supervising Physician PA/TIM Supervising Physician: Dr. Prescott
[2024-08-04 07:09] VITALS: BP 121/79; PULSE 62; RESP 16; TEMP 36.8; O2SAT 98; BMI 25.4
[2024-08-04 08:09] LABS: Basophils % (Auto) 1 % (0-2.5); Eosinophils # (Auto) 0.1 Thou/mm3 (0.0-0.5); Eosinophils % (Auto) 1 % (0-10); Hematocrit 43.4 % (41.0-53.0); Hemoglobin 14.4 g/dL (13.5-16.0); Immature Granulocytes % (Auto) 0 % (0-0); Immature Granulocytes Auto 0.01 Thou/mm3 (0.00-0.00); Lymphocytes # (Auto) 1.4 Thou/mm3 (1.0-4.8); Lymphocytes % (Auto) 23 % (10-50); Mean Corpuscular HGB Conc 33.2 g/dl (31.0-37.0); Mean Corpuscular Hemoglobin 29.3 pg (25.0-35.0); Mean Corpuscular Volume 88 fL (80-100); Monocytes # (Auto) 0.6 Thou/mm3 (0.0-0.8); Monocytes % (Auto) 10 % (0-12); Neutrophils # (Auto) 3.8 Thou/mm3 (1.8-7.7); Neutrophils % (Auto) 65 % (37-80); Nucleated Red Blood Cell % 0 /100 WBC (0); Platelet Count 267 Thou/mm3 (140-440); RDW Standard Deviation 44.7 fL (35.1-43.9); Red Blood Count 4.91 Miln/mm3 (4.50-5.90); White Blood Count 5.9 Thou/mm3 (3.8-10.6)
[2024-08-04 08:26] LABS: B-Type Natriuretic Peptide < 20 pg/mL (0-100)
[2024-08-04 08:31] LABS: Alanine Aminotransferase 13 U/L (10-49); Albumin, Serum 4.6 gm/dL (3.5-5.0); Albumin/Globulin Ratio 1.8 (1.2-2.2); Alkaline Phosphatase 73 U/L (46-116); Anion Gap 10 (7-16); Aspartate Amino Transferase 15 U/L (0-34); BUN/Creatinine Ratio 9 Ratio (12-20); Bilirubin,Total 0.6 mg/dL (0.3-1.2); Blood Urea Nitrogen 10 mg/dL (9-23); Calcium 8.6 mg/dL (8.3-10.6); Calcium (Corrected) 8.6 mg/dL (8.5-10.1); Carbon Dioxide 26.3 mMol/L (20.0-31.0); Chloride 105 mMol/L (98-107); Creatinine (Component) 1.1 mg/dL (0.6-1.3); Estimated Creatinine Clearance 85.2 mL/min (>60); Globulin 2.5 gm/dL (2.3-3.5); Glucose 115 mg/dL (74-106); Magnesium 1.9 mg/dL (1.6-2.6); Osmolality,Calculated 281 (275-295); Potassium 3.9 mMol/L (3.4-5.1); Sodium 141 mMol/L (136-145); Total Protein 7.1 gm/dL (5.7-8.2); Troponin I < 0.002 ng/mL (0.0-0.045); eGFR > 60 See Note
== END 2024-08-04 09:19 | disposition home or self-care (01) ==
PROVIDERS: Nurse Practitioner Family; Emergency Provider Family Medicine; PCP Pediatrics
DX: R07.9 Chest pain, unspecified (principal); I45.89 Other specified conduction disorders; I10 Essential (primary) hypertension; E78.00 Pure hypercholesterolemia, unspecified
CPT/HCPCS: 36415; 80053; 83735; 83880; 84484; 85025; 93005; 99283

== ENCOUNTER 2024-08-04 09:40 | Emergency (ER) | payer MEDICARE, SELFPAY ==
[2024-08-04 09:49] VITALS: BP 101/65; PULSE 68; RESP 16; TEMP 36.6; O2SAT 96; BMI 24.4
--- NOTE | 2024-08-04 10:23 | PD.EDCHEST ---
ED Chest Pain RME/HPI General Chief Complaint: Chest Pain Stated Complaint: CHEST PAIN Time Seen by Provider: 08/04/24 09:55 Source: patient Arrival date/time: 08/04/24 09:40 54-year-old male with no known medical history presents to the emergency room with a chief complaint of chest pain after taking medication this morning. Patient was seen here 1 hour ago but eloped and is now here for his results Mode of arrival: ambulatory Limitations: no limitations Related Data Home Medications ?Medication ?Instructions ?Recorded ?Confirmed amlodipine 10 mg tablet 10 mg PO DAILY 05/19/21 05/19/21 atenolol 100 mg tablet 100 mg PO DAILY 05/19/21 05/19/21 atorvastatin 20 mg tablet 20 mg PO DAILY 05/19/21 05/19/21 benazepril 40 mg tablet 40 mg PO DAILY High Blood Pressure 05/19/21 05/19/21 Previous Rx's ?Medication ?Instructions ?Recorded phenobarbital 32.4 mg tablet 32.4 mg PO QDAY #7 tabs 04/18/23 pantoprazole 40 mg tablet,delayed 40 mg PO QDAY #20 tabs 07/28/24 release (Protonix) Allergies Allergy/AdvReac Type Severity Reaction Status Date / Time No Known Allergies Allergy Verified 08/02/24 08:20 Review of Systems Review of Systems Systems Reviewed: All systems reviewed, normal except as documented Constitutional Constitutional: Reports system reviewed and no additional complaints, except as documented, Denies fatigue, Denies fever(s), Denies headache(s) and Denies weakness Eyes Eyes: Reports system reviewed and no additional complaints, except as documented, Denies blurry vision and Denies change in vision ENT Ears, Nose, Mouth, and Throat: Reports system reviewed and no additional complaints, except as documented, Denies otalgia, Denies headache(s), Denies nasal congestion, Denies throat swelling and Denies vertigo Cardiovascular Cardiovascular: Reports system reviewed and no additional complaints, except as documented, Denies chest pain, Denies dyspnea and Denies dyspnea on exertion Respiratory Respiratory: Reports system reviewed and no additional complaints, except as documented, Denies chest congestion, Denies cough, Denies dyspnea, Denies dyspnea on exertion and Denies wheezing Gastrointestinal Gastrointestinal: Reports system reviewed and no additional complaints, except as documented, Denies abdominal pain, Denies cramping, Denies nausea and Denies vomiting Genitourinary Genitourinary: Reports system reviewed and no additional complaints, except as documented, Denies dysuria and Denies hematuria Musculoskeletal Musculoskeletal: Reports system reviewed and no additional complaints, except as documented and Denies back pain Integumentary/Breasts Skin/Breast: Reports system reviewed and no additional complaints, except as documented and Denies wounds Neurologic Neurologic: Reports system reviewed and no additional complaints, except as documented, Denies confusion, Denies headache(s), Denies lack of coordination, Denies vertigo and Denies weakness Psychiatric Psychiatric: Reports system reviewed and no additional complaints, except as documented, Denies anxiety, Denies confusion, Denies depression, Denies paranoia, Denies suicidal ideation and Denies tactile hallucinations Endocrine Endocrine: Reports system reviewed and no additional complaints, except as documented and Denies fatigue Hematologic/Lymphatic Hematologic/Lymphatic: Reports system reviewed and no additional complaints, except as documented and Denies lymphadenopathy Allergic/Immunologic Allergic/Immunologic: Reports system reviewed and no additional complaints, except as documented, Denies throat swelling, Denies urticaria and Denies wheezing ED Exam General Limitations: Present no limitations General appearance: Present alert and in no apparent distress Head Head exam: Present atraumatic Eye Eye exam: Present normal appearance, PERRL and EOMI ENT ENT exam: Present normal exam, normal oropharynx and mucous membranes moist Neck Neck exam: Present normal inspection, full ROM and trachea midline Chest Chest inspection: Present normal inspection and symmetric chest wall rise Respiratory Respiratory exam: Present normal lung sounds bilaterally Cardiovascular Cardiovascular exam: Present regular rate, normal rhythm and normal heart sounds Abdominal Exam Abdominal exam: Present soft and normal bowel sounds Extremities Exam Extremities exam: Present normal inspection and full ROM Back Exam Back exam: Present normal inspection and full ROM Neurological Exam Neurological exam: Present alert, oriented X3 and CN II-XII intact Psychiatric Psychiatric exam: Present normal affect and normal mood Skin Skin exam: Present warm, dry, intact and normal color Course Quality Measures none Vital Signs Vital signs: Vital Signs Temperature 97.9 F 08/04/24 09:49 Pulse Rate 68 08/04/24 09:49 Respiratory Rate 16 08/04/24 09:49 Blood Pressure 101/65 08/04/24 09:49 Pulse Oximetry (%) 96 08/04/24 09:49 Oxygen Delivery Method Room Air 08/04/24 09:49 Chest Pain MDM Narrative MDM Narrative:: 54-year-old male with no known medical history presents to the emergency room with a chief complaint of chest pain after taking medication this morning. Patient was seen here 1 hour ago but eloped and is now here for his results Patient is hemodynamically stable and in no apparent distress. Patient was seen here this morning 1 hour ago and was discharged but according to nurses he had eloped and they were unable to give him his discharge instructions. The patient return to the emergency room but he was out of the system but states he is just here for his results. I spoke to him and gave him all his results everything was negative troponin was negative CBC CMP were negative. Patient was educated to follow-up with primary care provider and return to the emergency room for any evidence of worsening signs or symptoms Patient data External records reviewed:: [facility] previous records Clinical information provided by:: patient Social determinants that could affect healthcare access:: none Patient has the following chronic illnesses:: No chronic illness How is presenting disease/condition affected by chronic disease/condition?: no chronic disease Evaluation data The following diagnostics were reviewed and interpreted by me:: lab results and radiology exam(s) Lab and/or radiology exams considered but not ordered:: Labs and radiology exams considered and ordered Interpretation Summary: N/A Medications / Prescriptions Medications or Prescriptions considered but not ordered:: No medication given Medication administrations:: No medication given Consultations Consultation(s) initiated? (list below): No Diagnosis Chest Pain Differential Diagnosis: atypical chest pain, st elevation myocardial infarction and chest pain Most likely diagnosis given after review of the tests above:: Chest pain Admission Indicated Admission indicated?: not indicated Admission Request Was there a request for admission?: No Disposition Plan Disposition Plan: Discharge Discharge Attestation Discharge Attestation: The patient and all family members were given an opportunity to ask questions and understood the discharge instructions. Discharge instructions specifically effects, indications for sooner follow up or return to the emergency department, and the expected course of current diagnosis. Patient condition: Stable Discharge Plan Plan Patient Disposition: HOME (Self Care) Discharge Disposition comment: Stable Prescriptions/Referrals Prescriptions/Med Rec: No Action benazepril 40 mg Tablet 40 mg PO DAILY atorvastatin 20 mg Tablet 20 mg PO DAILY atenolol 100 mg Tablet 100 mg PO DAILY amlodipine 10 mg Tablet 10 mg PO DAILY phenobarbital 32.4 mg tablet 32.4 mg PO QDAY Qty: 7 0RF Rx Instructions: complete 1 week of 32.4mg bid, then take this prescription once daily for one week pantoprazole [Protonix] 40 mg tablet,delayed release (DR/EC) 40 mg PO QDAY Qty: 20 0RF Problem List Clinical Impression: Chest pain Patient/Caregiver Discharge Instructions Education Materials: ED Chest Pain, Noncardiac Additional Instructions: Please follow-up with your primary care provider in the next 24 to 48 hours and return to the emergency room for any evidence of worsening signs or symptoms Print Language: Polish Stand Alone Forms: Donna Award Info., Patient Portal Info Letter PA/TECHNICAL SUPPORT REPRESENTATIVE Supervising Physician PA/TECHNICAL SUPPORT REPRESENTATIVE Supervising Physician: Dr. Prescott
== END 2024-08-04 10:25 | disposition left against medical advice (07) ==
PROVIDERS: Emergency Provider Family Medicine
DX: R07.9 Chest pain, unspecified (principal); Z53.29 Procedure and treatment not carried out because of patient's decision for other reasons
CPT/HCPCS: 99281

== ENCOUNTER 2024-08-04 17:57 | Emergency (ER) | payer MEDICARE, SELFPAY ==
[2024-08-04 17:58] VITALS: PULSE 64; RESP 18; O2SAT 98
--- NOTE | 2024-08-04 18:37 | EKG_ITS ---
[facility] Test Date: 2024-08-04 Pat Name: LUISA MURGUIA Department: Room: - Gender: Male [employer] Tender: : 1970 Requested By: Alex Man Order Number: [id number] Reading MD: Alex Man Measurements Intervals [place] Rate: 68 P: 71 MA: 164 QRS: 49 QRSD: 110 T: 17 QT: 404 QTc: 430 Interpretive Statements SINUS RHYTHM NONSPECIFIC T-WAVE ABNORMALITY Compared to ECG 08/04/2024 07:12:04 T-wave abnormality now present Intraventricular conduction delay no longer present /store/S0/[id number]/ecg/[id number].pdf
[2024-08-04 18:44] VITALS: BP 109/74; PULSE 80; RESP 18; TEMP 36.6; O2SAT 99; BMI 28.3
--- NOTE | 2024-08-04 18:55 | EDRME_ITS ---
Rapid Medical Screening Exam [facility] Arrival date/time: 08/04/24 17:57 Patient with alcohol abuse presents to ED with CP. Patient think it's due to his DM meds he's been taking for a year. When asked how we can help him, patient got upset and stormed off. Patient also threatened violence to this provider. Chief Complaint: Chest Pain Vital signs: Vital Signs Temperature 98 F 08/04/24 18:44 Pulse Rate 80 08/04/24 18:44 Respiratory Rate 18 08/04/24 18:44 Blood Pressure 109/74 08/04/24 18:44 Pulse Oximetry (%) 99 08/04/24 18:44 Oxygen Delivery Method Room Air 08/04/24 18:44
--- NOTE | 2024-08-04 18:55 | PC.NURSE ---
after seeing provider patient decided to leave the E.R.
== END 2024-08-04 20:08 | disposition left against medical advice (07) ==
LOC: SERX 19:06
PROVIDERS: Emergency Provider Emergency Medicine
DX: R07.9 Chest pain, unspecified (principal); R94.31 Abnormal electrocardiogram [ECG] [EKG]; R45.6 Violent behavior; Z53.29 Procedure and treatment not carried out because of patient's decision for other reasons
CPT/HCPCS: 93005; 99281

== ENCOUNTER 2024-08-06 12:48 | Emergency (ER) | payer MEDICARE, SELFPAY ==
[2024-08-06 12:51] VITALS: BMI 25.2
[2024-08-06 13:09] VITALS: BP 103/74; PULSE 72; RESP 18; TEMP 36.9; O2SAT 97
--- NOTE | 2024-08-06 13:17 | XR_ITS ---
Examination: PA lateral chest 2 views Technique: Upright PA lateral chest 2 views Date and time: August 06, 2024 1327 hrs. Indications: Chest pain beginning 3 days ago. Findings: Normal heart size. Lungs are clear. Osseous structures are intact Impression: No active disease
[2024-08-06 14:48] LABS: Amphetamine/Methamp Scrn,U Negative (Negative); Barbiturate Screen,Urine Negative (Negative); Benzodiazepines Screen,Urine Negative (Negative); Benzoylecgonine Screen, Ur Negative (Negative); Fentanyl Screen,Urine Negative (Negative); Opiate Screen,Urine Negative (Negative); THC Screen,Urine Negative (Negative)
[2024-08-06 14:49] LABS: Troponin I < 0.002 ng/mL (0.0-0.045)
--- NOTE | 2024-08-06 15:20 | PD.EDWEAK ---
ED Weakness RME/HPI General Chief complaint: Weakness Stated complaint: WEAKNESS Time Seen by Provider: 08/06/24 12:58 Arrival date/time: 08/06/24 12:48 54-year-old male presents to the emergency department today for complaint of chest pain and fatigue patient's had multiple visits for the same Limitations: no limitations Related Data Home Medications ?Medication ?Instructions ?Recorded ?Confirmed amlodipine 10 mg tablet 10 mg PO DAILY 05/19/21 05/19/21 atenolol 100 mg tablet 100 mg PO DAILY 05/19/21 05/19/21 atorvastatin 20 mg tablet 20 mg PO DAILY 05/19/21 05/19/21 benazepril 40 mg tablet 40 mg PO DAILY High Blood Pressure 05/19/21 05/19/21 Previous Rx's ?Medication ?Instructions ?Recorded phenobarbital 32.4 mg tablet 32.4 mg PO QDAY #7 tabs 04/18/23 pantoprazole 40 mg tablet,delayed 40 mg PO QDAY #20 tabs 07/28/24 release (Protonix) Allergies Allergy/AdvReac Type Severity Reaction Status Date / Time No Known Allergies Allergy Verified 08/06/24 12:53 Review of Systems Review of Systems Systems Reviewed: All systems reviewed, normal except as documented Constitutional Constitutional: Reports system reviewed and no additional complaints, except as documented, Denies fever(s) and Denies headache(s) Eyes Eyes: Reports system reviewed and no additional complaints, except as documented and Denies blurry vision ENT Ears, Nose, Mouth, and Throat: Reports system reviewed and no additional complaints, except as documented, Denies headache(s), Denies nasal congestion and Denies nasal discharge Cardiovascular Cardiovascular: Reports system reviewed and no additional complaints, except as documented, Denies chest pain and Denies dyspnea Respiratory Respiratory: Reports system reviewed and no additional complaints, except as documented, Denies chest congestion, Denies cough and Denies dyspnea Gastrointestinal Gastrointestinal: Reports system reviewed and no additional complaints, except as documented and Denies abdominal pain Integumentary/Breasts Skin/Breast: Reports system reviewed and no additional complaints, except as documented and Denies rash Neurologic Neurologic: Reports system reviewed and no additional complaints, except as documented, Reports as per HPI and Denies headache(s) Psychiatric Psychiatric: Reports system reviewed and no additional complaints, except as documented, Reports anxiety, Denies homicidal ideation and Denies suicidal ideation Past Medical History Past Medical History NEUROLOGIC: Positive Seizures CARDIAC: Positive Hypercholesterolemia and Hypertension; Negative Cardiac Disorders or Congestive Heart Failure RESPIRATORY: Negative Chronic Obstructive Pulmonary Disease (COPD) or Asthma GENITOURINARY: Negative Renal Disease MUSCULOSKELETAL: Positive Gout ENDOCRINE: Negative Diabetes Mellitus Type 1 or Diabetes Mellitus Type 2 HEMATOLOGIC: Negative Sickle Cell Disease OTHER HISTORY: Positive Falls Family History FAMILY HISTORY: Negative Family Cardiac Disorders Social History SMOKING STATUS: Former smoker SUBSTANCE USE: marijuana ED Exam General Limitations: Present no limitations General appearance: Present alert and in no apparent distress Head Head exam: Present atraumatic Eye Eye exam: Present normal appearance, PERRL and EOMI ENT ENT exam: Present normal exam, normal oropharynx and mucous membranes moist Neck Neck exam: Present normal inspection, full ROM and trachea midline Chest Chest inspection: Present normal inspection and symmetric chest wall rise Respiratory Respiratory exam: Present normal lung sounds bilaterally Cardiovascular Cardiovascular exam: Present regular rate, normal rhythm and normal heart sounds Abdominal Exam Abdominal exam: Present soft and normal bowel sounds Extremities Exam Extremities exam: Present normal inspection and full ROM Back Exam Back exam: Present normal inspection and full ROM Neurological Exam Neurological exam: Present alert, oriented X3 and CN II-XII intact Psychiatric Psychiatric exam: Present normal affect and normal mood Skin Skin exam: Present warm, dry, intact and normal color Course Quality Measures none Orders Category Date Time Status EKG (ED ONLY) *Do not use* NOW Care 08/06/24 13:17 Completed EKG (ED Only) Stat Exams 08/06/24 13:17 Ordered XR chest 2V Stat Exams 08/06/24 13:17 Completed Drug Screen,Urine Stat Lab 08/06/24 14:05 Completed Troponin I Stat Lab 08/06/24 13:37 Completed Vital Signs Vital signs: Vital Signs Temperature 98.4 F 08/06/24 13:09 Pulse Rate 72 08/06/24 13:09 Respiratory Rate 18 08/06/24 13:09 Blood Pressure 103/74 08/06/24 13:09 Pulse Oximetry (%) 97 08/06/24 13:09 Oxygen Delivery Method Room Air 08/06/24 13:09 O2 saturation 97% room air with normal limits Weakness MDM Narrative MDM Narrative:: 54-year-old male presents to the emergency department today for complaint of chest pain and fatigue patient's had multiple visits for the same On exam patient well-appearing patient does not appear ill or toxic in no acute distress Lab work and imaging obtained no acute emergent findings noted Patient discharged home in no distress to follow-up with primary care doctor in the next 24 to 48 hours and for any worsening symptoms to return to the ER immediately Patient data External records reviewed:: [facility] previous records Clinical information provided by:: patient Social determinants that could affect healthcare access:: none Patient has the following chronic illnesses:: Anxiety, alcohol abuse, hypertension How is presenting disease/condition affected by chronic disease/condition?: caused by Evaluation data The following diagnostics were reviewed and interpreted by me:: lab results, radiology exam(s) and EKG tracing(s) Lab and/or radiology exams considered but not ordered:: Labs, radiology, EKG obtained Interpretation Summary: Reviewed by me Medications / Prescriptions Medications or Prescriptions considered but not ordered:: Given Medication administrations:: Given Consultations Consultation(s) initiated? (list below): No Diagnosis Weakness Differential Diagnosis: other (Fatigue, chest pain, body aches, anxiety) Most likely diagnosis given after review of the tests above:: Anxiety, atypical chest pain Admission Indicated Admission indicated?: not indicated Admission Request Was there a request for admission?: No Disposition Plan Disposition Plan: Discharge Discharge Attestation Discharge Attestation: The patient and all family members were given an opportunity to ask questions and understood the discharge instructions. Discharge instructions specifically effects, indications for sooner follow up or return to the emergency department, and the expected course of current diagnosis. Patient condition: Stable Discharge Plan Plan Patient Disposition: Elopement Discharge Disposition comment: Stable Prescriptions/Referrals Prescriptions/Med Rec: No Action benazepril 40 mg Tablet 40 mg PO DAILY atorvastatin 20 mg Tablet 20 mg PO DAILY atenolol 100 mg Tablet 100 mg PO DAILY amlodipine 10 mg Tablet 10 mg PO DAILY phenobarbital 32.4 mg tablet 32.4 mg PO QDAY Qty: 7 0RF Rx Instructions: complete 1 week of 32.4mg bid, then take this prescription once daily for one week pantoprazole [Protonix] 40 mg tablet,delayed release (DR/EC) 40 mg PO QDAY Qty: 20 0RF Problem List Clinical Impression: Fatigue, Anxiety about health Patient/Caregiver Discharge Instructions Education Materials: Normal Breathing During Sleep Additional Instructions: Please follow up with your primary care doctor in the next 24-48hrs for any worsening symptoms return here immediately Print Language: Arabic Stand Alone Forms: [email or web address] Patient Portal Info Letter PA/DIABETOLOGIST Supervising Physician PA/DIABETOLOGIST Supervising Physician: Dr. morrison
--- NOTE | 2024-08-06 15:24 | PC.NURSE ---
no answer x 1 at 1524. checked outside and lobby.
--- NOTE | 2024-08-06 15:33 | PC.NURSE ---
no answer x 2 at 1533. checked outside and lobby.
--- NOTE | 2024-08-06 15:48 | PC.NURSE ---
Pt did not answer when name was called in the lobby and was not found outside.
== END 2024-08-06 15:21 | disposition left against medical advice (07) ==
PROVIDERS: Nurse Practitioner Primary Care; Emergency Provider Family Medicine
DX: F41.9 Anxiety disorder, unspecified (principal); R53.83 Other fatigue; Z53.29 Procedure and treatment not carried out because of patient's decision for other reasons; R07.9 Chest pain, unspecified
CPT/HCPCS: 36415; 71046; 80307; 84484; 93005; 99283

== ENCOUNTER 2024-08-14 08:48 | Emergency (ER) | payer MEDICARE, SELFPAY ==
[2024-08-14 09:09] VITALS: BP 117/80; PULSE 62; RESP 18; TEMP 36.7; O2SAT 97; BMI 24.9
--- NOTE | 2024-08-14 09:58 | EDNOTE_ITS ---
ED Chest Pain RME/HPI General Chief Complaint: Chest Pain Stated Complaint: CHEST PAIN Time Seen by Provider: 08/14/24 09:13 Arrival date/time: 08/14/24 08:48 This is a 54-year-old male that comes in with complaints of chest pain but when asked he stated this that he does not have chest pain. Patient states he had chest pain before but no longer has chest pain today. Patient has been seen in the emergency room multiple times. Patient states that his symptoms he takes no medications in fact it makes him feel ill. Patient has a history of high blood pressure, diabetes, hyperlipidemia. Patient states that he does not have a machine to check his blood sugar and he is very upset about this. Patient stat es that he feels like his sugar is low. Patient has no other complaints. Patient has no fever no chills no nausea no vomiting no chest pain no shortness of breath no abdominal pain no back pain no recent trauma Related Data Home Medications ?Medication ?Instructions ?Recorded ?Confirmed amlodipine 10 mg tablet 10 mg PO DAILY 05/19/2109/04 atenolol 100 mg tablet 100 mg PO DAILY 05/19/2109/04 atorvastatin 20 mg tablet 20 mg PO DAILY 05/19/2109/04 benazepril 40 mg tablet 40 mg PO DAILY High Blood Pr essure 05/19/21 05/19/21 Previous Rx's ?Medication ?Instructions ?Recorded phenobarbital 32.4 mg tablet 32.4 mg PO QDAY #7 tabs 0 04/18/23 pantoprazole 40 mg tablet,delayed 40 mg PO QDAY #20 ta bs 07/28/24 release (Protonix) Allergies Allergy/AdvReac Type Severity Reaction Status Date / Time No Known Allergies Allergy Verified 08/14/24 08:51 Course Orders Category Date Time Status Glucose [Bedside Blood Glucose] NOW Care 08/14/24 09:57 Completed Vital Signs Vital signs: Vital Signs Temperature 98.1 F 08/14/24 09:09 Pulse Rate 62 08/14/24 09:09 Respiratory Rate 18 08/14/24 09:09 Blood Pressure 117/80 08/14/24 09:09 Pulse Oximetry (%) 97 08/14/24 09:09 Oxygen Delivery Method Room Air 08/14/24 09:09 Chest Pain MDM Narrative MDM Narrative:: Spoke to patient at length. Patient denying chest pain at the time of assessment. patient's blood sugar was 102. I started to talk to patient about anxiety and depression. Patient states that he is sad that his dad but he does not feel depressed or does not have anxiety. Denies suicidal homicidal ideations. Patient states that usually when he comes to the emergency room his symptoms get better. I talked to patient about having him talk to psychiatric social worker. Patient states that the hospital charges too much for every service. Patient's exam was unremarkable. Patient states that was examined him and his assessment findings are normal. Explained to patient that if his symptoms change or worsen he may come back to the emergency room otherwise follow-up with his primary provider in 1 to 2 days. Discharge Plan Plan Patient Disposition: HOME (Self Care) Patient condition on transfer: Stable Prescriptions/Referrals Prescriptions/Med Rec: No Action benazepril 40 mg Tablet 40 mg PO DAILY atorvastatin 20 mg Tablet 20 mg PO DAILY atenolol 100 mg Tablet 100 mg PO DAILY amlodipine 10 mg Tablet 10 mg PO DAILY phenobarbital 32.4 mg tablet 32.4 mg PO QDAY Qty: 7 0RF Rx Instructions: complete 1 week of 32.4mg bid, then take this prescription once daily for one week pantoprazole [Protonix] 40 mg tablet,delayed release (DR/EC) 40 mg PO QDAY Qty: 20 0RF Problem List Clinical Impression: Diabetes mellitus, HTN (hypertension), Anxiety Patient/Caregiver Discharge Instructions Discharge Activity: activity as tolerated Education Materials: Managing Type 2 Diabetes Additional Instructions: Please follow-up with primary provider in 1 to 2 days come back to the emergency room if symptoms change or worsen. Print Language: Kinyarwanda Stand Alone Forms: Donna Award Info., Patient Portal Info Letter PA/HIGH SCHOOL ART TEACHER Supervising Physician PA/HIGH SCHOOL ART TEACHER Supervising Physician: kobi
--- NOTE | 2024-08-14 10:28 | PC.NURSE ---
PT DENIES CHEST PAIN AT THIS TIME.
== END 2024-08-14 10:30 | disposition home or self-care (01) ==
PROVIDERS: Emergency Provider Emergency Medicine; PCP Internal Medicine
DX: F41.9 Anxiety disorder, unspecified (principal); I10 Essential (primary) hypertension; E11.9 Type 2 diabetes mellitus without complications; F32.A Depression, unspecified
CPT/HCPCS: 99283

== ENCOUNTER → 2024-11-07 | Outpatient (CLI) | payer OTHER, SELFPAY ==
[2024-11-07 08:51] LABS: Basophils # (Auto) 0.0 Thou/mm3 (0.0-0.2); Basophils % (Auto) 1 % (0-2.5); Eosinophils # (Auto) 0.1 Thou/mm3 (0.0-0.5); Eosinophils % (Auto) 2 % (0-10); Hematocrit 42.9 % (41.0-53.0); Hemoglobin 14.1 g/dL (13.5-16.0); Immature Granulocytes Auto 0.03 Thou/mm3 (0.00-0.00); Lymphocytes # (Auto) 1.5 Thou/mm3 (1.0-4.8); Lymphocytes % (Auto) 25 % (10-50); Mean Corpuscular HGB Conc 32.9 g/dl (31.0-37.0); Mean Corpuscular Hemoglobin 29.9 pg (25.0-35.0); Mean Corpuscular Volume 91 fL (80-100); Monocytes # (Auto) 0.5 Thou/mm3 (0.0-0.8); Monocytes % (Auto) 9 % (0-12); Neutrophils # (Auto) 3.7 Thou/mm3 (1.8-7.7); Neutrophils % (Auto) 63 % (37-80); Nucleated Red Blood Cell # 0.00 Thou/mm3 (0.00-0.00); Nucleated Red Blood Cell % 0 /100 WBC (0); Platelet Count 271 Thou/mm3 (140-440); RDW Standard Deviation 43.7 fL (35.1-43.9); Red Blood Count 4.72 Miln/mm3 (4.50-5.90); White Blood Count 5.9 Thou/mm3 (3.8-10.6)
[2024-11-07 09:05] LABS: Alanine Aminotransferase 11 U/L (10-49); Albumin, Serum 4.5 gm/dL (3.5-5.0); Albumin/Globulin Ratio 2.0 (1.2-2.2); Alkaline Phosphatase 64 U/L (46-116); Anion Gap 9 (7-16); Aspartate Amino Transferase 14 U/L (0-34); BUN/Creatinine Ratio 16 Ratio (12-20); Bilirubin,Total 0.7 mg/dL (0.3-1.2); Blood Urea Nitrogen 16 mg/dL (9-23); Calcium 9.7 mg/dL (8.3-10.6); Calcium (Corrected) 9.7 mg/dL (8.5-10.1); Carbon Dioxide 27.4 mMol/L (20.0-31.0); Cardiac Risk Estimate 5.7 RATIO (4.0-6.7); Chloride 106 mMol/L (98-107); Cholesterol 239 mg/dL (132-200); Creatinine (Component) 1.0 mg/dL (0.6-1.3); Free T4 (Free Thyroxine) 1.20 ng/dL (0.89-1.76); Globulin 2.3 gm/dL (2.3-3.5); Glucose 127 mg/dL (74-106); HDL Cholesterol 42 mg/dL (40-60); LDL Cholesterol,Calculated 174 mg/dL (0-130); Osmolality,Calculated 286 (275-295); Potassium 4.1 mMol/L (3.4-5.1); Sodium 142 mMol/L (136-145); Thyroid Stimulating Hormone 1.62 uIU/mL (0.55-4.78); Total Protein 6.8 gm/dL (5.7-8.2); Triglycerides 116 mg/dL (30-150); eGFR > 60 See Note
[2024-11-07 09:06] LABS: Vitamin D 25 Hydroxy Total 31.0 ng/mL (7.3-40.2)
[2024-11-07 09:24] LABS: Glucose Estimated Average 137 mg/dL (80-131); Hemoglobin A1C 6.4 % Hgb (4.8-6.0)
== END | disposition home or self-care (01) ==
PROVIDERS: PCP Internal Medicine; Referring Provider Internal Medicine; Visit Provider Internal Medicine
DX: Z00.00 Encounter for general adult medical examination without abnormal findings (principal); E55.9 Vitamin D deficiency, unspecified
CPT/HCPCS: 36415; 80053; 80061; 82306; 83036; 84439; 84443; 85025